=== PATIENT | female | born 1955 | race Caucasian/White ===

== ENCOUNTER 2016-09-21 21:23 | Observation (INO) | payer OTHER ==
[~2016-09-21] VITALS: Ht 162.6 cm; Wt 78.0 kg
[~2016-09-21 21:23] MED LIST: ALBU6.7H INH
[2016-09-21 21:27] VITALS: BP 200/88; PULSE 133; RESP 22; TEMP 99; O2SAT 92
[2016-09-21 21:41] VITALS: BP 146/77; PULSE 127; RESP 24; O2SAT 99
[2016-09-21] MEDS ORDERED: SERT-129 PO (21:46)
[2016-09-21] MEDS ORDERED: ALBU6.7H INH (21:46)
[2016-09-21] MEDS ORDERED: SODIUM CHLORIDE 0.9% FLUSH 5 ML FLUSH IVF PRN (22:00)
[2016-09-21] MEDS: RESP: ALBUTEROL 2.5 MG/IPRATROPIUM 0.5 MG NEB (SCH) INH ×2 (22:05→22:06)
--- NOTE | 2016-09-21 22:43 | RADRPT ---
EXAM DATE/TIME: 09/21/2016 22:03 [place] COMPARISON: CHEST SINGLE AP, September 02, 2012, 20:30. INDICATIONS : Shortness of breath. MEDICAL HISTORY : Asthma. SURGICAL HISTORY : None. ENCOUNTER: Initial ACUITY: 1 day PAIN SCORE: 0/10 LOCATION: chest FINDINGS: Minimal airspace disease is identified in the left base. Right lung is clear. Heart and mediastinal structures are stable. Osseous structures are intact. CONCLUSION: Mild left basilar airspace disease. Mayito Goodwin MD on September 21, 2016 at 22:40 Board Certified Radiologist. This report was verified electronically.
[2016-09-21 23:02] LABS: APTT (PATIENT) 24.7 SEC (24.3-30.1); INTERNATIONAL NORMALIZED RATIO 0.9 RATIO; PROTHROMBIN TIME - PATIENT 9.4 SEC (9.8-11.6)
[2016-09-21 23:12] LABS: ANION GAP 9 MEQ/L (5-15); AST (GOT) 27 U/L (15-37); BICARBONATE 24.6 MEQ/L (21.0-32.0); BLOOD UREA NITROGEN 14 MG/DL (7-18); CHLORIDE 105 MEQ/L (98-107); GLOMERULAR FILTRATION RATE 53 ML/MIN (>89); MAGNESIUM 2.2 MG/DL (1.5-2.5); POTASSIUM 4.3 MEQ/L (3.5-5.1); SODIUM (NA) 139 MEQ/L (136-145)
[2016-09-21 23:23] LABS: ALKALINE PHOSPHATASE 107 U/L (45-117); ALT (GPT) 48 U/L (10-53); CREATINE KINASE 95 U/L (26-192); TOTAL BILIRUBIN ADULT 0.3 MG/DL (0.2-1.0)
[2016-09-21 23:43] LABS: AUTOMATED NEUTROPHIL # 1.6 TH/MM3 (1.8-7.7); BASOPHIL % 0.4 % (0.0-2.0); EOSINOPHIL % 1.1 % (0.0-4.0); HEMATOCRIT 41.7 % (35.0-46.0); HEMO FLAGS DIFF FINAL; LYMPH % 43.5 % (9.0-44.0); LYMPHOCYTE # 1.8 TH/MM3 (1.0-4.8); MEAN CELL VOLUME 86.6 FL (80.0-100.0); MEAN CORPUSCULAR HGB CONC 33.5 % (32.0-36.0); MONO % 17.2 % (0.0-8.0); NEUT % 37.8 % (16.0-70.0); PLATELET COUNT 247 TH/MM3 (150-450); RED BLOOD COUNT 4.82 MIL/MM3 (4.00-5.30); RED CELL DISTRIBUTION WIDTH 13.6 % (11.6-17.2); WHITE BLOOD COUNT 4.1 TH/MM3 (4.0-11.0)
[2016-09-21 23:57] VITALS: BP 121/73; PULSE 121; RESP 24; TEMP 98.7; O2SAT 94
[2016-09-22] VITALS (9 sets, daily range): BP systolic 100–175; BP diastolic 53–86; PULSE 78–99; RESP 14–24; TEMP 96.8–97.9; O2SAT 93–98
[2016-09-22 00:50] LABS: BACTERIA, URINE RARE /hpf; BLOOD, URINE NEG (NEG); CALCIUM OXALATE CRYSTALS,URINE MOD /hpf; COMMENT (UR) CULT NOT INDICATED; CULTURE IF INDICATED CULT NOT INDICATED; GLUCOSE,URINE NEG (NEG); KETONE, URINE NEG (NEG); MUCUS URINE FEW /lpf (OCC); NITRITE,URINE NEG (NEG); PH, URINE 5.5 (5.0-8.5); RENAL EPITHELIAL CELLS <1 /hpf; SQUAMOUS EPITHELIAL CELL URINE 16 /hpf (0-5); TRANSITIONAL EPI CELLS, URINE 1 /hpf; URINE COLOR YELLOW (YELLW/STRAW)
--- NOTE | 2016-09-22 01:13 | PD ---
HPI Chief Complaint: Respiratory Symptoms Time Seen by Provider: 21:54 Travel History International Travel<30 days: No Contact w/Intl Traveler<30days: No Traveled to known affect area: No History of Present Illness HPI 61-year-old female presents to the emergency department for complaint of progressive shortness of breath. Patient has asthma with recent exacerbation. Patient presents with diaphoresis. Denies chest pain referred neck jaw back shoulder arm or abdominal pain. Patient denies history of cardiac disease. Patient states that she's had nonproductive cough but has not improved using her nebulizer at home. Patient was just recently seen by her primary care provider per yesterday was given prescription for azithromycin. Patient states symptoms are worsening and not improving. Patient states that she is working very hard to breathe. No abdominal pain. No lower extremity pain or swelling. PFSH Past Medical History Narrative Medical Asthma bipolar anxiety depression skin cancer GERD hysterectomy cholecystectomy appendectomy positive tobacco use nursing notes reviewed Arthritis: No Asthma: Yes Autoimmune Disease: No Blood Disorders: No Bipolar Disorder: Yes Anxiety: Yes Depression: Yes Heart Rhythm Problems: No Cancer: Yes (skin) Cardiac Catheterization: No Cardiovascular Problems: No High Cholesterol: No Chemotherapy: No Chest Pain: No Congestive Heart Failure: No COPD: No Cerebrovascular Accident: No Diabetes: No Diminished Hearing: No Endocrine: No GERD: Yes Glaucoma: No Genitourinary: No Headaches: No Hepatitis: No Hiatal Hernia: No Hypertension: No Kidney Stones: No Musculoskeletal: Yes Neurologic: No Psychiatric: No Respiratory: Yes (ASTHMA) Immunizations Current: Yes Myocardial Infarction: No Radiation Therapy: No Renal Failure: No Seizures: No Sickle Cell Disease: No Sleep Apnea: No Thyroid Disease: No Ulcer: No Tetanus Vaccination: Unknown Influenza Vaccination: No Menopausal: Yes Past Surgical History Abdominal Surgery: Yes AICD: No Cardiac Surgery: No Cholecystectomy: Yes (1984) Coronary Artery Bypass Graft: No Ear Surgery: No Endocrine Surgery: No Eye Surgery: No Genitourinary Surgery: No Gynecologic Surgery: Yes (HYSTERCTOMY) Hysterectomy: Yes Oral Surgery: No Pacemaker: No Thoracic Surgery: No Other Surgery: Yes (GB REMOVED,APPY,HYSTERECTOMY) Family History Family Myocardial Infarction: Yes (UNCLES) Social History Alcohol Use: No Tobacco Use: Yes Substance Use: No Allergies-Medications (Allergen,Severity, Reaction): Coded Allergies: No Known Allergies (Unverified , 01/28/16) Reported Meds & Prescriptions Reported Meds & Active Scripts Active Reported Proventil Hfa 6.7 GM Inh (Albuterol Sulfate) 90 Mcg/Act Aer 2 Puff INH Q6H PRN Sertraline (Sertraline HCl) 100 Mg Tab 100 Mg PO DAILY Proventil Hfa (Albuterol Sulfate) 6.7 Gm Aero 2 Puff INH Q4HPRN * SHAKE WELL BEFORE USE * Review of Systems Except as stated in HPI: all other systems reviewed are Neg General / Constitutional: No: Fever HENT: No: Congestion Cardiovascular: No: Chest Pain or Discomfort Respiratory: Positive: Cough, Shortness of Breath, Wheezing Gastrointestinal: No: Abdominal Pain Genitourinary: No: Flank Pain Musculoskeletal: No: Myalgias, Arthralgias Skin: No Rash Neurologic: No: Weakness Psychiatric: Positive: Anxiety Hematologic/Lymphatic: No: Lymph Node Enlargement Physical Exam Narrative GENERAL: Well-developed well-nourished female with work of breathing and diaphoresis SKIN: Warm and dry. HEAD: Normocephalic. EYES: No scleral icterus. No injection or drainage. NECK: Supple, trachea midline. No JVD or lymphadenopathy. CARDIOVASCULAR: Regular rate and rhythm without murmurs, gallops, or rubs. RESPIRATORY: Breath sounds equal bilaterally diminished with wheezing and accessory muscle use. GASTROINTESTINAL: Abdomen soft, non-tender, nondistended. MUSCULOSKELETAL: No cyanosis, or edema. BACK: Nontender without obvious deformity. No CVA tenderness. Data Data Last Documented VS Vital Signs Date Time Temp Pulse Resp B/P Pulse Ox O2 Delivery O2 Flow Rate FiO2 09/21/16 23:57 98.7 121 24 121/73 94 Nasal Cannula 2 Orders Complete Blood Count With Diff (09/21/16 21:54) Comprehensive Metabolic Panel (09/21/16 21:54) B-Type Natriuretic Peptide (09/21/16 21:54) Act Partial Throm Time (Ptt) (09/21/16 21:54) Prothrombin Time / Inr (Pt) (09/21/16 21:54) Magnesium (Mg) (09/21/16 21:54) Ckmb (Isoenzyme) Profile (09/21/16 21:54) Troponin I (09/21/16 21:54) Urinalysis - C+S If Indicated (09/21/16 21:54) Influenzae A/B Antigen (09/21/16 21:54) Blood Culture (09/21/16 21:54) Iv Access Insert/Monitor (09/21/16 21:54) Electrocardiogram (09/21/16 21:54) Ecg Monitoring (09/21/16 21:54) Oximetry (09/21/16 21:54) Oxygen Administration (09/21/16 21:54) Chest, Single Ap (09/21/16 21:54) Sodium Chloride 0.9% Flush (Ns Flush) (09/21/16 22:00) Albuterol-Ipratropium Neb (Duoneb Neb) (09/21/16 22:00) Sodium Chlorid 0.9% 500 Ml Inj (Ns 500 M (09/22/16 01:15) Azithromycin Inj (Zithromax Inj) (09/22/16 01:15) Ceftriaxone Inj (Rocephin Inj) (09/22/16 01:15) Admit Order (Ed Use Only) (09/22/16 ) ^ Saline Lock (09/22/16 01:33) Resp Oxygen Ez C Titrat 1-4 L (09/22/16 ) ^ Notify Dr: Other (09/22/16 01:33) Sodium Chloride 0.9% Flush (Ns Flush) (09/22/16 09:00) Sodium Chloride 0.9% Flush (Ns Flush) (09/22/16 01:45) Labs Laboratory Tests Test 09/21/16 09/22/16 22:00 00:00 White Blood Count 4.1 TH/MM3 Red Blood Count 4.82 MIL/MM3 Hemoglobin 14.0 GM/DL Hematocrit 41.7 % Mean Corpuscular Volume 86.6 FL Mean Corpuscular Hemoglobin 29.0 PG Mean Corpuscular Hemoglobin 33.5 % Concent Red Cell Distribution Width 13.6 % Platelet Count 247 TH/MM3 Mean Platelet Volume 9.3 FL Neutrophils (%) (Auto) 37.8 % Lymphocytes (%) (Auto) 43.5 % Monocytes (%) (Auto) 17.2 % Eosinophils (%) (Auto) 1.1 % Basophils (%) (Auto) 0.4 % Neutrophils # (Auto) 1.6 TH/MM3 Lymphocytes # (Auto) 1.8 TH/MM3 Monocytes # (Auto) 0.7 TH/MM3 Eosinophils # (Auto) 0.0 TH/MM3 Basophils # (Auto) 0.0 TH/MM3 CBC Comment DIFF FINAL Differential Comment Prothrombin Time 9.4 SEC Prothromb Time International 0.9 RATIO Ratio Activated Partial 24.7 SEC Thromboplast Time Sodium Level 139 MEQ/L Potassium Level 4.3 MEQ/L Chloride Level 105 MEQ/L Carbon Dioxide Level 24.6 MEQ/L Anion Gap 9 MEQ/L Blood Urea Nitrogen 14 MG/DL Creatinine 1.06 MG/DL Estimat Glomerular Filtration 53 ML/MIN Rate Random Glucose 155 MG/DL Calcium Level 8.6 MG/DL Magnesium Level 2.2 MG/DL Total Bilirubin 0.3 MG/DL Aspartate Amino Transf 27 U/L (AST/SGOT) Alanine Aminotransferase 48 U/L (ALT/SGPT) Alkaline Phosphatase 107 U/L Total Creatine Kinase 95 U/L Troponin I LESS THAN 0.02 NG/ML B-Type Natriuretic Peptide 3 PG/ML Total Protein 7.5 GM/DL Albumin 3.8 GM/DL Urine Color YELLOW Urine Turbidity HAZY Urine pH 5.5 Urine Specific [place] 1.030 Urine Protein TRACE mg/dL Urine Glucose (UA) NEG mg/dL Urine Ketones NEG mg/dL Urine Occult Blood NEG Urine Nitrite NEG Urine Bilirubin NEG Urine Urobilinogen LESS THAN 2.0 MG/DL Urine Leukocyte Esterase LARGE Urine RBC 6 /hpf Urine WBC 6 /hpf Urine Squamous Epithelial 16 /hpf Cells Urine Transitional Epithelial 1 /hpf Cells Urine Renal Epithelial Cells <1 /hpf Urine Calcium Oxalate Crystals MOD /hpf Urine Bacteria RARE /hpf Urine Mucus FEW /lpf Microscopic Urinalysis Comment CULT NOT INDICATED MDM Medical Decision Making Medical Screen Exam Complete: Yes Emergency Medical Condition: Yes Medical Record Reviewed: Yes Interpretation(s) ekg: Sinus tachycardia no acute ST elevation or injury pattern change noted Last Impressions Chest X-Ray 09/21/16 [id number] Signed Impressions: Service Date/Time: Wednesday, September 21, 2016 22:03 - CONCLUSION: Mild left basilar airspace disease. Mayito Goodwin MD CBC & BMP Diagram 09/21/16 22:00 Vital Signs Date Time Temp Pulse Resp B/P Pulse Ox O2 Delivery O2 Flow Rate FiO2 09/21/16 23:57 98.7 121 24 121/73 94 Nasal Cannula 2 09/21/16 21:48 99 Nasal Cannula 2 09/21/16 21:42 98 Nasal Cannula 2 09/21/16 21:41 127 24 146/77 99 Room Air 09/21/16 21:27 99.0 133 22 200/88 92 Room Air CK 90, not elevated troponin I less than 0.02, not elevated BNP 3, not elevated Differential Diagnosis Dyspnea, exacerbation COPD, asthma, bronchitis, pneumonia, CHF, PE, ACS Narrative Course Patient placed on civil cad tech IV access obtained specimens collected and sent for resulting patient administered IV fluid bolus and DuoNeb updrafts along with Solu-Medrol Advise resulted and found to be essentially within normal range patient resting more comfortably Chest x-ray does not show any pneumothorax large pleural effusion or vascular congestion Patient is clinically improved after updraft treatment and steroids; patient will be admitted for ongoing management of asthma Sepsis Criteria SIRS Criteria (2 or more): Heart rate over 90, RR > 20 or PaCO2 < 32 Sepsis Criteria (SIRS+source): Infect source susp/known (bronchitis) Diagnosis Primary Impression: Exacerbation of asthma Additional Impression: Bronchitis Admitting Information Admitting Physician Requests: Admit Norma Giang MD Sep 22, 2016 01:13
[2016-09-22] MEDS ORDERED: SODIUM CHLORID 0.9% 500 ML INJ 500 ML IV ONE (01:15)
[2016-09-22] MEDS ORDERED: cefTRIAXone INJ 1,000 MG in SODIUM CHLORIDE 0.9% INJ 100 ML IV ONE (01:15)
[2016-09-22] MEDS ORDERED: AZITHROMYCIN INJ 500 MG in SODIUM CHLOR 0.9% 250 ML INJ 250 ML IV ONE (01:15)
[2016-09-22] MEDS ORDERED: SODIUM CHLORIDE 0.9% FLUSH 5 ML FLUSH IVF PRN (01:45)
[2016-09-22] MEDS ORDERED: NALOXONE HCL 0.4 MG/ML AMP IV PRN (02:00)
[2016-09-22] MEDS ORDERED: RESP: ALBUTEROL 2.5 MG/IPRATROPIUM 0.5 MG NEB (PRN) NEB (02:00)
[2016-09-22] MEDS ORDERED: SODIUM CHLORIDE 0.9% FLUSH 5 ML FLUSH FLUSH PRN (02:00)
[2016-09-22] MEDS: RESP: ALBUTEROL 2.5 MG/IPRATROPIUM 0.5 MG NEB (SCH) NEB ×4 (02:46→20:17)
[2016-09-22] MEDS ORDERED: SODIUM CHLORIDE 0.9% FLUSH 5 ML FLUSH IVF SCH (09:00)
[2016-09-22] MEDS: ENOXAPARIN SODIUM 40 MG/0.4 ML SYRINGE SQ SCH (09:10)
[2016-09-22] MEDS: SODIUM CHLORIDE 0.9% FLUSH 5 ML FLUSH FLUSH SCH ×2 (09:10→23:33)
--- NOTE | 2016-09-22 10:02 | HHI.HP ---
[facility] Service [facility] Primary Care Physician Tyler Leon DO Admission Diagnosis Exacerbation Asthma; acute bronchitis Diagnoses: Chief Complaint: shortness of breath Travel History International Travel<30 Days: No Contact w/Intl Traveler <30 Da: No Traveled to Known Affected Are: No History of Present Illness 61-year-old female with history of hypertension, asthma, bipolar, anxiety, depression, GERD, presents with a 2 day history of shortness of breath. The patient reports four days ago she was around her son and grandson who are sick with the "flu", has symptoms of congestion, sore throat, fevers. Patient reports the next day she started having nasal congestion, scratchy throat, and fevers as high as 102 at home. She started taking Mucinex and ibuprofen which did help relieve her fevers and congestion, however yesterday she started to develop worsening shortness of breath. She has been using her albuterol inhaler twice a day with minimal relief. She felt like she just could not get any air in, and had worsening dyspnea on exertion. Denies noticing any wheezing. Denies lower extremity edema. She initially had a dry hacking cough but after taking the Mucinex, she has been able to produce some phlegm, does not know what color. The patient does have a history of asthma since childhood, has never had to be hospitalized overnight or intubated, but has had multiple ER visits for asthma exacerbations in the past. Since her arrival to the ER, CXR showed mild left basilar airspace disease. She was given IV Rocephin/ azithromycin and nebulizer treatments with mild improvement. Review of Systems Constitutional: COMPLAINS OF: Fever, Chills, DENIES: Diaphoretic episodes, Dizziness, Change in appetite, Night Sweats Endocrine: DENIES: Polydipsia, Polyuria, Polyphagia Eyes: DENIES: Blurred vision, Double Vision Ears, nose, mouth, throat: COMPLAINS OF: Throat pain, Sinus Pain, DENIES: Ear Pain, Running Nose, Toothache, Odynophagia Respiratory: COMPLAINS OF: Cough, Sputum production, Shortness of breath, DENIES: Wheezing Cardiovascular: COMPLAINS OF: Dyspnea on Exertion, DENIES: Chest pain, Palpitations, Lower Extremity Edema, Orthopnea Gastrointestinal: DENIES: Abdominal pain, Constipation, Diarrhea, Nausea, Vomiting Genitourinary: DENIES: Urinary frequency, Urgency, Dysuria Musculoskeletal: DENIES: Joint pain, Back pain, Neck pain Integumentary: DENIES: Abnormal pigmentation, Pruritus, Rash Hematologic/lymphatic: DENIES: Bruising, Lymphadenopathy Immunologic/allergic: DENIES: Eczema, Urticaria Neurologic: DENIES: Abnormal gait, Headache, Localized weakness Past Family Social History Past Medical History Asthma Bipolar Anxiety Depression Skin cancer GERD Past Surgical History Hysterectomy Cholecystectomy Appendectomy Reported Medications Proventil Hfa 6.7 GM Inh (Albuterol Sulfate) 90 Mcg/Act Aer 2 Puff INH Q6H PRN Sertraline (Sertraline HCl) 100 Mg Tab 100 Mg PO DAILY Trileptal 300mg po bid Lisinopril unknown dose Oxybutynin Omeprazole Clonazepam 1mg q8h prn Allergies: Coded Allergies: No Known Allergies (Unverified , 01/28/16) Active Ordered Medications Current Medications Medications (Trade) Dose Ordered Sig/Ann Marie Route Start Time Stop Time Status Last Admin (NS Flush) 2 ml UNSCH PRN FLUSH 09/22/16 02:00 (NS Flush) 2 ml BID FLUSH 09/22/16 09:00 09/22/16 09:10 (Lovenox Inj) 40 mg Q24H SQ 09/22/16 09:00 09/22/16 09:10 (Narcan Inj) 0.4 mg UNSCH PRN IV 09/22/16 02:00 Family History Father with heart disease, valve replacement Mother with diabetes, hypertension, stroke Social History Smoked tobacco 2PPD from age 12 to 29 (quit in 1983) No alcohol use No illicit drug use Lives with her son and ex- Ambulates independently Physical Exam Vital Signs Vital Signs Date Time Temp Pulse Resp B/P Pulse Ox O2 Delivery O2 Flow Rate FiO2 09/22/16 08:56 97.6 87 14 111/65 98 09/22/16 08:42 78 18 175/78 97 2 09/22/16 07:14 86 16 116/86 95 Nasal Cannula 2 09/22/16 07:14 95 2 09/22/16 07:14 96 Nasal Cannula 2 09/22/16 07:14 86 16 116/68 95 Nasal Cannula 2 09/22/16 04:26 99 24 116/53 97 Nasal Cannula 2 09/22/16 03:25 24 09/21/16 23:57 98.7 121 24 121/73 94 Nasal Cannula 2 09/21/16 21:48 99 Nasal Cannula 2 09/21/16 21:42 98 Nasal Cannula 2 09/21/16 21:41 127 24 146/77 99 Room Air 09/21/16 21:27 99.0 133 22 200/88 92 Room Air Physical Exam GENERAL: Well-nourished, well-developed middle aged female patient in [facility]. Sleeping upon my arrival. SKIN: Warm and dry. No rash. HEAD: Normocephalic. Atraumatic. EYES: Pupils equal and round. No scleral icterus. No injection or drainage. ENT: No nasal bleeding or discharge. Mucous membranes pink and moist. NECK: Supple. Trachea midline. CARDIOVASCULAR: Regular rate and rhythm. S1, S2 noted. No murmur appreciated. RESPIRATORY: No accessory muscle use. Breath sounds diminished at bilateral bases, otherwise clear to auscultation. Breath sounds equal bilaterally. GASTROINTESTINAL: Abdomen soft, non-tender, nondistended. Normoactive bowel sounds x4. MUSCULOSKELETAL: No obvious deformities. Extremities without clubbing, cyanosis , or edema. NEUROLOGICAL: Awake and alert. No obvious cranial nerve deficits. Motor grossly within normal limits. 5/5 muscle strength in bilateral upper and lower extremities. Normal speech. PSYCHIATRIC: Appropriate mood and affect; insight and judgment normal. Laboratory Laboratory Tests Test 09/21/16 09/22/16 22:00 00:00 White Blood Count 4.1 Red Blood Count 4.82 Hemoglobin 14.0 Hematocrit 41.7 Mean Corpuscular Volume 86.6 Mean Corpuscular Hemoglobin 29.0 Mean Corpuscular Hemoglobin 33.5 Concent Red Cell Distribution Width 13.6 Platelet Count 247 Mean Platelet Volume 9.3 Neutrophils (%) (Auto) 37.8 Lymphocytes (%) (Auto) 43.5 Monocytes (%) (Auto) 17.2 Eosinophils (%) (Auto) 1.1 Basophils (%) (Auto) 0.4 Neutrophils # (Auto) 1.6 Lymphocytes # (Auto) 1.8 Monocytes # (Auto) 0.7 Eosinophils # (Auto) 0.0 Basophils # (Auto) 0.0 CBC Comment DIFF FINAL Differential Comment Prothrombin Time 9.4 Prothromb Time International 0.9 Ratio Activated Partial 24.7 Thromboplast Time Sodium Level 139 Potassium Level 4.3 Chloride Level 105 Carbon Dioxide Level 24.6 Anion Gap 9 Blood Urea Nitrogen 14 Creatinine 1.06 Estimat Glomerular Filtration 53 Rate Random Glucose 155 Calcium Level 8.6 Magnesium Level 2.2 Total Bilirubin 0.3 Aspartate Amino Transf 27 (AST/SGOT) Alanine Aminotransferase 48 (ALT/SGPT) Alkaline Phosphatase 107 Total Creatine Kinase 95 Troponin I LESS THAN 0.02 B-Type Natriuretic Peptide 3 Total Protein 7.5 Albumin 3.8 Urine Color YELLOW Urine Turbidity HAZY Urine pH 5.5 Urine Specific [place] 1.030 Urine Protein TRACE Urine Glucose (UA) NEG Urine Ketones NEG Urine Occult Blood NEG Urine Nitrite NEG Urine Bilirubin NEG Urine Urobilinogen LESS THAN 2.0 Urine Leukocyte Esterase LARGE Urine RBC 6 Urine WBC 6 Urine Squamous Epithelial 16 Cells Urine Transitional Epithelial 1 Cells Urine Renal Epithelial Cells <1 Urine Calcium Oxalate Crystals MOD Urine Bacteria RARE Urine Mucus FEW Microscopic Urinalysis Comment CULT NOT INDICATED Date/Time Procedure Status Source Growth 09/21/16 22:03 Influenza Types A,B Antigen (IRMA) - Final Complete Nasal Washing NEGATIVE FOR FLU A AND B ANTIGEN.... 09/21/16 22:00 Aerobic Blood Culture Received Blood Peripheral Pending 09/21/16 22:00 Anaerobic Blood Culture Received Blood Peripheral Pending Result Diagram: 09/21/16 2200 09/21/16 220 Imaging Last Impressions Chest X-Ray 09/21/162153 Signed Impressions: Service Date/Time: Wednesday, September 21, 2016 22:03 - CONCLUSION: Mild left basilar airspace disease. Mayito Goodwin MD Assessment and Plan Problem List: (1) Exacerbation of asthma ICD Code: J45.901 Status: Acute (2) Pneumonia ICD Code: J18.9 Status: Acute Assessment and Plan 61-year-old female with history of hypertension, asthma, bipolar, anxiety, depression, GERD, presents with a 2 day history of shortness of breath. Asthma Exacerbation: O2 sat 92% upon arrival, not on home O2. Continue duonebs q6h ann marie and q2h prn. No wheezing, will hold off on steroids at this time. Abx for pneumonia as below. O2 as needed. Sepsis with Suspected Community Acquired Pneumonia: Febrile at home, Tmax 102, and tachycardic upon arrival with HR 122. Influenza negative. CXR images reviewed by me, showed mild left basilar airspace disease. S/p IV Rocephin/ Azithro in the ED, will continue. Mucinex bid. Collect sputum culture if possible. JAM: Cr 1.06, previously 0.83 in 2012. Given IVF. Repeat BMP. Hypertension: chronic, continue patient's lisinopril once dose verified by nursing. Bipolar/Anxiety/Depression: chronic, continue patient's sertraline, Trileptal, and clonazepam prn. RN to verify home meds. GERD: chronic, continue PPI. DVT Prophylaxis: Lovenox. Discussed with Dr. Espana. Discussed Condition With Patient, Isamar Simpson PA-C Sep 22, 2016 10:02
[2016-09-22] MEDS ORDERED: clonazePAM 1 MG TAB PO PRN (10:30)
[2016-09-22] MEDS ORDERED: ENALAPRILAT 1.25 MG/ML VIAL IV PUSH PRN (10:45)
[2016-09-22] MEDS: PANTOPRAZOLE SOD 20 MG DELAYED RELEASE TAB PO SCH (12:30)
[2016-09-22] MEDS: SERTRALINE HCL 100 MG TAB PO SCH (12:30)
[2016-09-22] MEDS: guaiFENesin E.R. 600 MG TAB PO SCH ×2 (12:30→23:32)
[2016-09-22] MEDS: OXcarbazepine 300 MG TAB PO SCH ×2 (12:30→23:32)
[2016-09-22] MEDS ORDERED: LISI2.5T3 PO (12:37)
[2016-09-22] MEDS ORDERED: CLON2TAB PO (12:37)
[2016-09-22] MEDS ORDERED: OXCA300T PO (12:37)
[2016-09-22] MEDS ORDERED: OMEP40CA2 PO (12:37)
[2016-09-22] MEDS ORDERED: OXYB5TAB PO (12:37)
[2016-09-22] MEDS ORDERED: CLON1TAB PO (12:37)
[2016-09-22] MEDS ORDERED: ACETAMINOPHEN 325 MG TAB PO PRN (17:30)
--- NOTE | 2016-09-22 23:49 | EKG ---
Date Performed: 09/21/2016 Time Performed: 21:46:53 PTAGE: 61 years EKG: SINUS TACHYCARDIA PATTERN CONSISTENT WITH PULMONARY DISEASE LEFT ANTERIOR FASCICULAR BLOCK MODERATE VOLTAGE CRITERIA FOR LVH, CONSIDER NORMAL VARIANT ABNORMAL ECG PREVIOUS TRACING : 01/28/2016 21.11 Compared to prior tracing no significant change DOCTOR: Chester Mattson Interpretating Date/Time 09/22/2016 23:47:12
[2016-09-23] VITALS (7 sets, daily range): BP systolic 116–139; BP diastolic 53–76; PULSE 79–104; RESP 16–18; TEMP 97.4–98.7; O2SAT 89–98
[2016-09-23] MEDS ORDERED: cefTRIAXone INJ 1,000 MG in SODIUM CHLORIDE 0.9% INJ 100 ML IV SCH (03:00)
[2016-09-23] MEDS: RESP: ALBUTEROL 2.5 MG/IPRATROPIUM 0.5 MG NEB (SCH) NEB ×3 (03:22→15:29)
[2016-09-23] MEDS ORDERED: AZITHROMYCIN 250 MG TAB PO SCH (04:00)
[2016-09-23] MEDS: PANTOPRAZOLE SOD 20 MG DELAYED RELEASE TAB PO SCH (08:06)
[2016-09-23] MEDS: guaiFENesin E.R. 600 MG TAB PO SCH (08:06)
[2016-09-23] MEDS: SODIUM CHLORIDE 0.9% FLUSH 5 ML FLUSH FLUSH SCH (08:06)
[2016-09-23] MEDS: OXcarbazepine 300 MG TAB PO SCH (08:07)
[2016-09-23] MEDS: SERTRALINE HCL 100 MG TAB PO SCH (08:07)
[2016-09-23] MEDS: ENOXAPARIN SODIUM 40 MG/0.4 ML SYRINGE SQ SCH (08:07)
--- NOTE | 2016-09-23 08:41 | HHI.PR ---
Subjective Remarks Follow-up for asthma exacerbation and pneumonia. Patient reports overall feeling slightly better, however still feels "sick". Feels slightly short of breath today, denies wheezing. Still with intractable nonproductive cough. Denies fevers or chills overnight. She states her oxygen saturations have been dropping when she ambulates, down to 88-89. She does not wear oxygen at home. Objective Vitals Vital Signs Date Time Temp Pulse Resp B/P Pulse Ox O2 Delivery O2 Flow Rate FiO2 09/23/16 08:07 97.4 90 16 139/70 91 09/23/16 07:36 95 21 09/23/16 04:58 98.7 85 18 131/76 98 09/23/16 00:48 97.8 81 18 121/75 89 09/22/16 19:34 96.8 80 20 118/59 93 09/22/16 15:24 97.9 78 16 100/69 95 09/22/16 11:23 97.6 79 14 113/69 94 09/22/16 11:22 88 09/22/16 08:56 97.6 87 14 111/65 98 09/22/16 08:42 78 18 175/78 97 2 I/O 09/22/16 09/22/16 09/22/16 09/23/16 09/23/16 09/23/16 07:00 15:00 23:00 07:00 15:00 23:00 Intake Total 0 ml Balance 0 ml Intake Oral 0 ml # Voids 1 2 # Bowel Movements 1 Result Diagram: 09/21/16219909/21/162199 Imaging Last Impressions Chest X-Ray 09/21/162153 Signed Impressions: Service Date/Time: Wednesday, September 21, 2016 22:03 - CONCLUSION: Mild left basilar airspace disease. Mayito Goodwin MD Objective Remarks GENERAL: Well-nourished, well-developed middle aged female patient in [facility]. Sleeping upon my arrival. SKIN: Warm and dry. No rash. HEENT: Normocephalic. Atraumatic.Pupils equal and round. No scleral icterus. No injection or drainage. Mucous membranes pink and moist. NECK: Supple. Trachea midline. CARDIOVASCULAR: Regular rate and rhythm. S1, S2 noted. No murmur appreciated. RESPIRATORY: No accessory muscle use. Mild scattered expiratory rhonchi bilaterally. Breath sounds equal bilaterally. GASTROINTESTINAL: Abdomen soft, non-tender, nondistended. Normoactive bowel sounds x4. MUSCULOSKELETAL: No obvious deformities. Extremities without clubbing, cyanosis , or edema. NEUROLOGICAL: Awake and alert. No obvious cranial nerve deficits. Motor grossly within normal limits. Normal speech. PSYCHIATRIC: Appropriate mood and affect; insight and judgment normal. Medications and IVs Current Medications Medications (Trade) Dose Ordered Sig/Ann Marie Route Start Time Stop Time Status Last Admin (NS Flush) 2 ml UNSCH PRN FLUSH 09/22/16 02:00 (NS Flush) 2 ml BID FLUSH 09/22/16 09:00 09/23/16 08:06 (Lovenox Inj) 40 mg Q24H SQ 09/22/16 09:00 09/23/16 08:07 (Narcan Inj) 0.4 mg UNSCH PRN IV 09/22/16 02:00 (KlonoPIN) 1 mg Q8H PRN PO 09/22/16 10:30 Guaifenesin 600 mg 600 mg BID PO 09/22/16 12:00 09/23/16 08:06 (Rocephin Inj/NS Inj) 100 ml @ 200 mls/hr Q24H IV 09/23/16 03:00 09/23/16 02:33 (Zithromax) 500 mg Q24H PO 09/23/16 04:00 09/23/16 03:15 (Zoloft) 100 mg DAILY PO 09/22/16 12:00 09/23/16 08:07 (Trileptal) 300 mg BID PO 09/22/16 12:00 09/23/16 08:07 (Protonix) 20 mg DAILY PO 09/22/16 12:00 09/23/16 08:06 (Vasotec Inj) 1.25 mg Q6H PRN IV PUSH 09/22/16 10:45 (Tylenol) 650 mg Q4H PRN PO 09/22/16 17:30 09/22/16 17:55 (Prinivil) 2.5 mg DAILY PO 09/23/16 09:00 09/23/16 08:06 (Detrol La) 2 mg DAILY PO 09/23/16 09:00 09/23/16 08:24 Urinary Catheter: No Vascular Central Line Catheter: No A/P Problem List: (1) Exacerbation of asthma ICD Code: J45.901 Status: Acute (2) Pneumonia ICD Code: J18.9 Status: Acute Assessment and Plan 61-year-old female with history of hypertension, asthma, bipolar, anxiety, depression, GERD, presents with a 2 day history of shortness of breath. Asthma Exacerbation: O2 sat 92% upon arrival, not on home O2. Continue duonebs q6h ann marie and q2h prn. Mild rhonchi today, will add prednisone 40mg daily. Abx for pneumonia as below. O2 as needed. Check home O2 walk test. Sepsis with Suspected Community Acquired Pneumonia: Febrile at home, Tmax 102, and tachycardic upon arrival with HR 122. Influenza negative. CXR images reviewed by me, showed mild left basilar airspace disease. S/p IV Rocephin/ Azithro in the ED, will continue. Mucinex bid. Collect sputum culture if possible. JAM: Cr 1.06, previously 0.83 in 2012. Given IVF. Repeat BMP. Hypertension: chronic, continue patient's lisinopril once dose verified by nursing. Bipolar/Anxiety/Depression: chronic, continue patient's sertraline, Trileptal, and clonazepam prn. GERD: chronic, continue PPI. DVT Prophylaxis: Lovenox. Discussed with Dr. Espana. Discharge Planning Possible discharge this afternoon if patient continues to feel better. 1610hrs: Patient re-evaluated, feels better, agrees to discharge. No further wheezing/rhonchi. Discharge patient to home Condition on discharge: Improved Heart Healthy Diet as tolerated Ad Myah activity Rx written: Ceftin 500mg po bid x7days, Azithro 500mg po qd x3days, Prednisone 40mg po qd x3days then 20mg po x3days, Symbicort bid, Ventolin HFA q4-6h prn. Follow-up with primary care physician within [address] PA-C Sep 23, 2016 8:41 am
[2016-09-23] MEDS ORDERED: LISINOPRIL 5 MG TAB PO SCH (09:00)
[2016-09-23] MEDS ORDERED: predniSONE 20 MG TAB PO SCH (09:00)
[2016-09-23] MEDS ORDERED: TOLTERODINE TARTRATE 2 MG CAP LA PO SCH (09:00)
[2016-09-23 10:40] LABS: BICARBONATE 26.8 MEQ/L (21.0-32.0)
[2016-09-23] MEDS ORDERED: MUCI600T PO (15:58)
[2016-09-23] MEDS ORDERED: PRED20 PO (15:58)
[2016-09-23] MEDS ORDERED: ZITH250T PO (15:58)
--- NOTE | 2016-09-23 16:00 | HHI.DCPOC ---
Discharge Care Plan Diagnosis: (1) Pneumonia (2) Exacerbation of asthma Your Health Problems Are: Cough Shortness of Breath Goals to Promote Your Health * To prevent worsening of your condition and complications * To maintain your health at the optimal level Directions to Meet Your Goals Take your medications as prescribed Follow your dietary instruction Follow activity as directed Keep your appointments as scheduled Take your immunizations and boosters as scheduled If your symptoms worsen call your PCP, if no PCP go to Urgent Care Center or Emergency Room Smoking is Dangerous to Your Health. Avoid second hand smoke Call the 24-hour hour crisis hotline for domestic abuse at [address] PA-C Sep 23, 2016 16:00
[2016-09-23] MEDS ORDERED: CEFT500T3 PO (16:20)
[2016-09-23] MEDS ORDERED: SYMB160A INH (16:24)
[2016-09-23] MEDS ORDERED: VENTAER INH (16:24)
[2016-10-18] MEDS ORDERED: LISI2.5T3 PO (11:29)
[2016-10-18] MEDS ORDERED: PANT40TA3 PO (11:29)
[2016-10-18] MEDS ORDERED: FLUT50SP EACH NARE (12:16)
[2016-10-18] MEDS ORDERED: TRIA1OIN2 TOPICAL (12:16)
[2016-10-18] MEDS ORDERED: VIST25CA PO (12:16)
[2017-01-04] MEDS ORDERED: SYMB160A INH (14:57)
== END 2016-09-23 20:59 | disposition home or self-care (01) ==
LOC: NEPC 21:23 → NEDA 09-22 01:35 → INTOOBSV 09-22 01:35 → NEDA 09-22 03:22 → NEPHCDU 09-22 08:52
PROVIDERS: ADMIT Hospitalist; ATTEND Hospitalist
DX: J45.901 Unspecified asthma with (acute) exacerbation (principal); K21.9 Gastro-esophageal reflux disease without esophagitis; I10 Essential (primary) hypertension; R61 Generalized hyperhidrosis; F41.8 Other specified anxiety disorders; F31.9 Bipolar disorder, unspecified; Z82.49 Family history of ischemic heart disease and other diseases of the circulatory system; Z87.891 Personal history of nicotine dependence; Z85.828 Personal history of other malignant neoplasm of skin
CPT/HCPCS: 71010; 80048; 80053; 81001; 82550; 83735; 83880; 84484; 85025; 85610; 85730; 87040; 87641; 87804; 93005; 94620; 94640; 94664; 99285; G0378; J0456; J0696; J1650; J7040; J7050; J7512

== ENCOUNTER 2017-09-20 01:48 | Inpatient (IN) | payer SELFPAY ==
[~2017-09-20 01:48] MED LIST changes: -ALBU6.7H INH; +CLON1TAB PO; +FLUT50SP EACH NARE; +LISI2.5T3 PO; +OXCA300T PO; +OXYB5TAB PO; +PANT40TA3 PO; +SERT-129 PO; +SYMB160A INH; +TRIA1OIN2 TOPICAL; +VENTAER INH; +VIST25CA PO
[2017-09-20 01:50] VITALS: BP 188/79; PULSE 112; RESP 16; TEMP 98.9; O2SAT 95
[2017-09-20 02:36] LABS: AUTOMATED NEUTROPHIL # 4.3 TH/MM3 (1.8-7.7); BASOPHIL % 0.5 % (0.0-2.0); EOSINOPHIL # 0.1 TH/MM3 (0-0.4); EOSINOPHIL % 1.5 % (0.0-4.0); HEMATOCRIT 39.5 % (35.0-46.0); HEMOGLOBIN 13.4 GM/DL (11.6-15.3); LYMPHOCYTE # 1.8 TH/MM3 (1.0-4.8); MEAN CELL VOLUME 85.4 FL (80.0-100.0); MEAN PLATELET VOLUME 8.3 FL (7.0-11.0); MONO % 10.9 % (0.0-8.0); MONOCYTE # 0.8 TH/MM3 (0-0.9); NEUT % 61.1 % (16.0-70.0); PLATELET COUNT 297 TH/MM3 (150-450); RED BLOOD COUNT 4.62 MIL/MM3 (4.00-5.30); RED CELL DISTRIBUTION WIDTH 13.5 % (11.6-17.2); WHITE BLOOD COUNT 7.1 TH/MM3 (4.0-11.0)
[2017-09-20 02:46] LABS: INTERNATIONAL NORMALIZED RATIO 0.9 RATIO; PROTHROMBIN TIME - PATIENT 9.6 SEC (9.8-11.6)
[2017-09-20 02:49] LABS: C-REACTIVE PROTEIN 14.8 MG/DL (0.00-0.30); CREATININE 0.97 MG/DL (0.50-1.00)
--- NOTE | 2017-09-20 02:52 | RADRPT ---
EXAM DATE/TIME: 09/20/2017 02:44 [place] COMPARISON: No previous studies available for comparison. INDICATIONS : Right knee pain with swelling post fall. MEDICAL HISTORY : Asthma SURGICAL HISTORY : None. ENCOUNTER: Initial ACUITY: 1 day PAIN SCORE: 6/10 LOCATION: Right knee FINDINGS: Four view examination of the right knee demonstrates no evidence of fracture or dislocation. Bony mi neralization is normal. The articular surfaces are intact. The suprapatellar soft tissues have a no rmal configuration. Prepatellar soft tissue swelling. CONCLUSION: 1. Prepatellar soft tissue swelling without acute fracture or dislocation. Frederick Avina MD on September 20, 2017 at 2:51 Board Certified Radiologist. This report was verified electronically.
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
[2017-09-20] MEDS ORDERED: KETOROLAC TROMETHAMINE 30 MG/ML (IVP) VIAL IV PUSH ONE (03:00)
[2017-09-20] MEDS ORDERED: LIDOCAINE HCL 1% 20 ML VIAL INFIL ONE (03:30)
[2017-09-20] MEDS ORDERED: ceFAZolin 2 GM PREMIX 50 ML IV ONE (04:00)
[2017-09-20] MEDS ORDERED: NALOXONE HCL 0.4 MG/ML AMP IV PUSH PRN ×2 (04:00→12:45)
[2017-09-20] MEDS ORDERED: CLINDAMYCIN 900 MG/NS PREMIX 50 ML IV ONE (04:00)
[2017-09-20] MEDS ORDERED: SODIUM CHLOR 0.9% 1000 ML INJ 1,000 ML IV ONE (04:00)
[2017-09-20] MEDS ORDERED: SODIUM CHLORIDE 0.9% FLUSH 10 ML FLUSH IV FLUSH PRN (04:00)
[2017-09-20] MEDS ORDERED: ACETAMINOPHEN 325 MG TAB PO PRN (04:00)
[2017-09-20] MEDS ORDERED: ONDANSETRON HCL 4 MG/2 ML VIAL IVP PRN ×2 (04:00→12:45)
[2017-09-20 05:11] VITALS: BP 154/89; PULSE 86; RESP 16; O2SAT 97
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
[2017-09-20] MEDS ORDERED: methylPREDNISolone SOD SUCC 125 MG/2 ML VIAL IV PUSH ONE (05:30)
[2017-09-20 06:04] VITALS: BP 164/72; PULSE 111; RESP 16; TEMP 98.1; O2SAT 94
[2017-09-20 07:22] VITALS: BP 175/85; PULSE 104; RESP 18; TEMP 97.7; O2SAT 95
[2017-09-20] MEDS ORDERED: CHLORHEXIDINE GLUCONATE 2 % 1 PACK (2 CLOTHS) TOPICAL PRN (07:30)
[2017-09-20] MEDS ORDERED: SODIUM CHLORID 0.9% 500 ML IV PRN (07:30)
[2017-09-20] MEDS ORDERED: METOPROLOL TARTRATE 25 MG TAB PO PRN (07:30)
[2017-09-20] MEDS ORDERED: POVIDONE IODINE 5% (ANTISEPSIS KIT) 4 APPLICATIONS EACH NARE PRN (07:30)
[2017-09-20] MEDS ORDERED: LACTATED RINGER'S 1000 ML IV PRN (07:30)
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
[2017-09-20] MEDS: SODIUM CHLORIDE 0.9% FLUSH 10 ML FLUSH IV FLUSH SCH ×2 (09:00→20:18)
--- NOTE | 2017-09-20 09:57 | HHI.PR ---
Subjective Remarks Complaints of abdominal pain, burning sensation. Patient states that she has an ulcer in her stomach complaints of burning sensation, no cramping, nonradiating, rated 10 over 10. Patient also states that she started to have diarrhea. She is on antibiotic IV clindamycin as ordered in the ED. She is to be taken to the OR for orthopedic procedure possible aspiration and debridement of the right knee. Otherwise denies chest pain, palpitations, shortness of breath or dyspnea. Denies dysuria. Objective Vitals Vital Signs Date Time Temp Pulse Resp B/P (MAP) Pulse Ox O2 Delivery O2 Flow Rate FiO2 09/20/17 07:22 97.7 104 18 175/85 (115) 95 09/20/17 06:04 98.1 111 16 164/72 (102) 94 09/20/17 05:50 09/20/17 05:11 86 16 154/89 (110) 97 Room Air 09/20/17 01:50 98.9 112 16 188/79 (115) 95 I/O 09/19/17 09/19/17 09/19/17 09/20/17 09/20/17 09/20/17 07:00 15:00 23:00 07:00 15:00 23:00 Intake Total 1050 ml Balance 1050 ml Intake IV Total 1050 ml Result Diagram: 09/20/1722409/20/17224 Objective Remarks GENERAL: This is a well-nourished, well-developed patient, in no apparent distress. SKIN: Warm and dry. HEENT: Normocephalic. Pupils equal round and reactive. Nose without bleeding. Airway patent. NECK: Trachea midline. No JVD. Supple. CARDIOVASCULAR: Regular rate and rhythm without murmurs, gallops, or rubs. RESPIRATORY: Clear to auscultation. Breath sounds equal bilaterally. No wheezes , rales, or rhonchi. GASTROINTESTINAL: Abdomen soft, nondistended. Bowel Sounds normoactive x4. Tender to palpate mid epigastric region MUSCULOSKELETAL: Extremities without clubbing, cyanosis. Right knee edema, erythema noted. NEUROLOGICAL: Awake and alert. Oriented to time, place, person. No focal neuro deficit. Moves all extremities. Normal speech. A/P Problem List: (1) Cellulitis ICD Code: L03.90 - Cellulitis, unspecified Status: Acute (2) Asthma ICD Code: J45.909 - Unspecified asthma, uncomplicated Status: Acute (3) Anxiety ICD Code: F41.9 - Anxiety disorder, unspecified Status: Acute Assessment and Plan 62 year old female with a history of psoriasis, asthma, htn, bipolar presented to the ED with complaints of right knee pain. Cellulitis, right knee CRP 14.8 Knee x ray reviewed and shows prepatellar soft tissue swelling without fracture or dislocation -Pain management with IV morphine -IV antibiotics: Clindamycin -Consult orthopedics for recommendations -solumedrol x 1 given HTN, chronic -Resume home medications, monitor vitals Abdominal pain, acute - Possibly gastritis -History of ulcer - Dorsal IV 1 dose now. Morphine 2 mg 1 dose now. Loose stools - Patient started on IV clindamycin will possibly switched to Vanco IV, to avoid risk for CDiff DVT prophylaxis: SCDs Problem Qualifiers (1) Cellulitis: Qualified Codes: L03.115 - Cellulitis of right lower limb Randal Angulo Sep 20, 2017 09:57
[2017-09-20] MEDS ORDERED: MORPHINE SULFATE 2 MG/ML INJ IV PUSH ONE (10:00)
[2017-09-20] MEDS ORDERED: PANTOPRAZOLE SODIUM 40 MG VIAL IV PUSH ONE (10:00)
[2017-09-20] MEDS ORDERED: CLINDAMYCIN 900 MG/NS PREMIX 50 ML IV SCH (10:00)
[2017-09-20] MEDS ORDERED: GENTAMICIN SULFATE 80 MG/2 ML VIAL ONE (11:58)
[2017-09-20] MEDS ORDERED: LACTATED RINGER'S 1000 ML INJ 1,000 ML IV ONE (12:00)
[2017-09-20] MEDS ORDERED: PROPOFOL 200 MG/20 ML AMP IV ONE (12:00)
[2017-09-20] MEDS ORDERED: ONDANSETRON HCL 4 MG/2 ML VIAL IV ONE (12:00)
[2017-09-20] MEDS ORDERED: PHENYLEPH/NS 1000 MCG/10 ML SYR IV ONE (12:00)
[2017-09-20] MEDS ORDERED: DEXAMETHASONE SOD PHOS 4 MG/ML VIAL IV ONE (12:00)
[2017-09-20] MEDS ORDERED: GLYCOPYRROLATE 1 MG/5 ML SYRINGE IV PUSH ONE (12:00)
[2017-09-20] MEDS ORDERED: NEOSTIGMINE 5 MG/5 ML SYRINGE IV PUSH ONE (12:00)
[2017-09-20] MEDS ORDERED: LIDOCAINE HCL 1% PF 5 ML SYRINGE OTHER ONE (12:00)
[2017-09-20] MEDS ORDERED: ROCURONIUM INJ 50 MG/5 ML SYRINGE IV PUSH ONE (12:00)
[2017-09-20] MEDS ORDERED: CLINDAMYCIN PHOS 900 MG/6 ML VIAL ONE (12:29)
[2017-09-20] MEDS ORDERED: MISCELLANEOUS NURSING INFORMATION XX PRN (12:45)
[2017-09-20] MEDS ORDERED: MORPHINE SULFATE 4 MG/ML INJ IV PUSH PRN (12:45)
[2017-09-20] MEDS ORDERED: MAGNESIUM HYDROXIDE SUSP 30 ML CUP PO PRN (12:45)
[2017-09-20] MEDS ORDERED: diphenhydrAMINE HCL 25 MG CAP PO PRN (12:45)
[2017-09-20] MEDS ORDERED: Post-op Orders (for Pharmacy) XX ONE (12:45)
--- NOTE | 2017-09-20 12:48 | PD.OP ---
cc: Balaji Delgado MD Operative Report Date of Surgery: Sep 20, 2017 Preoperative Diagnosis: Right knee possible prepatellar septic bursitis with associated cellulitis Postoperative Diagnosis: Same Procedure: Right knee irrigation and debridement with prepatellar bursectomy Anesthesia: Gen. Surgeon: Balaji Delgado Mill Roll Operator(s): VU Shoemaker The surgical procedure was assisted by my Advanced Registered Nurse Practitioner. My MANAGER AIR presence was necessary throughout this case for the manipulation and positioning of the surgical extremity. My MANAGER AIR was assisting me throughout the duration of this procedure. The skill set of an Advance Registered Nurse Practitioner was medically necessary to complete this procedure. During the surgical case, the hvac refrigeration technician was working at the back table and the Advance Registered Nurse Practitioner was directly assisting me. Operation and Findings: Tourniquet time: 0 minutes at 250 mmHg of pressure Estimated blood loss: 20 cc We did not give preoperative antibiotics. There was a dose of clindamycin that was due which was given after cultures were obtained. After the appropriate anesthesia was administered, the patient's leg was prepped and draped in the usual sterile fashion. We made a small incision on the anterior aspect of the knee. The skin was thickened but intact. Note that there was moderate amount of erythema around the anterior aspect of the knee which extended laterally and then posteriorly. We expressed approximately 20 cc of serous fluid from the prepatellar bursa. There was significant thickening of the bursal tissue which was excised using a rongeur and also using mechanical debridement with a laparotomy sponge. We did not find gross purulence. We did take 2 cultures of the fluid before performing the debridement. We then irrigated the knee with 2 L of saline. We exchanged instruments and gloves. We placed a deep flat drain. This was sewn into place. We closed skin with 2-0 Monocryl followed by 2-0 nylon. The postoperative plan is for weightbearing as tolerated to the extremity. We have requested an infectious disease consultation to help determine type and length of antibiotics. We will follow drain output and likely remove the drain within the next couple of days. Balaji Delgado MD Sep 20, 2017 12:48
[2017-09-20] MEDS ORDERED: NORC5TAB PO (12:50)
[2017-09-20] MEDS ORDERED: SUGAMMADEX SODIUM 200 MG/2 ML VIAL IV PUSH ONE (12:59)
[2017-09-20] MEDS ORDERED: DO NOT ADM ANY ANTICOAGULANT DRUGS PRN (13:09)
[2017-09-20] MEDS ORDERED: MIDAZOLAM HCL 2 MG/2 ML VIAL ONE (13:15)
[2017-09-20] MEDS ORDERED: *morphine SULFATE 10 MG/ML PERIprocedure ONLY ONE (13:28)
[2017-09-20] MEDS: DEXT 5%-NACL 0.45% 1000 ML INJ 1,000 ML IV SCH ×2 (13:30→23:26)
[2017-09-20] MEDS ORDERED: ALUMINUM/MAGNESIUM/SIMETH 30 ML CUP PO PRN (14:15)
[2017-09-20] MEDS ORDERED: VANCOMYCIN INJ 1,250 MG in SODIUM CHLOR 0.9% 250 ML INJ 250 ML IV SCH (14:30)
[2017-09-20] MEDS ORDERED: Vancomycin Consult Pharmacy 1 EA OTHER SCH (14:30)
[2017-09-20] MEDS: LACTOBACILLUS ACIDOPHILUS TAB PO SCH (18:26)
[2017-09-20] MEDS: VANCOMYCIN INJ 1,500 MG in SODIUM CHLORID 0.9% 500 ML INJ 500 ML IV SCH (18:26)
[2017-09-20 19:15] VITALS: BP 123/56; PULSE 96; RESP 16; TEMP 98; O2SAT 98
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
[2017-09-20] MEDS: DOCUSATE SODIUM 50 MG/SENNA 8.6 MG TAB PO SCH (20:18)
[2017-09-20] MEDS: ACETAMINOPHEN/HYDROcodone 325 MG/5 MG TAB PO PRN (23:24)
[2017-09-21] VITALS (7 sets, daily range): BP systolic 117–166; BP diastolic 56–85; PULSE 83–98; RESP 14–20; TEMP 97.7–98.7; O2SAT 95–98
[2017-09-21] MEDS: VANCOMYCIN INJ 1,500 MG in SODIUM CHLORID 0.9% 500 ML INJ 500 ML IV SCH ×2 (04:27→19:32)
[2017-09-21 07:03] LABS: BASOPHIL % 0.2 % (0.0-2.0); EOSINOPHIL % 0.1 % (0.0-4.0); HEMATOCRIT 33.1 % (35.0-46.0); LYMPH % 13.3 % (9.0-44.0); LYMPHOCYTE # 1.2 TH/MM3 (1.0-4.8); MEAN CORPUSCULAR HEMOGLOBIN 28.5 PG (27.0-34.0); MEAN CORPUSCULAR HGB CONC 33.1 % (32.0-36.0); MEAN PLATELET VOLUME 8.5 FL (7.0-11.0); MONO % 8.8 % (0.0-8.0); MONOCYTE # 0.8 TH/MM3 (0-0.9); NEUT % 77.6 % (16.0-70.0); PLATELET COUNT 263 TH/MM3 (150-450); RED BLOOD COUNT 3.85 MIL/MM3 (4.00-5.30); RED CELL DISTRIBUTION WIDTH 13.2 % (11.6-17.2)
[2017-09-21 07:37] LABS: BICARBONATE 28.9 MEQ/L (21.0-32.0); CALCIUM 8.4 MG/DL (8.5-10.1); CREATININE 0.71 MG/DL (0.50-1.00)
[2017-09-21] MEDS: SODIUM CHLORIDE 0.9% FLUSH 10 ML FLUSH IV FLUSH SCH ×2 (09:00→21:00)
--- NOTE | 2017-09-21 09:34 | HHI.PR ---
Subjective Remarks Follow-up visit right knee cellulitis, dyspepsia. Patient seen and examined today and event. Reports she is doing better. Continues to have right knee pain, aching, non radiating, /. Denies diarrhea. Denies SOB/ dyspnea. Denies chest pain, palpitations, headaches, dizziness. Denies fevers, chills, n/ v. Denies dysuria. Objective Vitals Vital Signs Date Time Temp Pulse Resp B/P (MAP) Pulse Ox O2 Delivery O2 Flow Rate FiO2 09/21/17 07:54 97.7 84 18 117/56 (76) 95 09/21/17 04:29 97.8 95 16 135/62 (86) 98 09/21/17 00:01 97.8 97 14 136/63 (87) 96 09/20/17 19:15 98.0 96 16 123/56 (78) 98 09/20/17 18:32 20 09/20/17 14:30 76 16 114/55 (74) 95 Nasal Cannula 2 09/20/17 14:00 74 16 102/57 (72) 95 Nasal Cannula 2 09/20/17 13:45 68 16 102/59 (73) 95 Nasal Cannula 2 09/20/17 13:30 72 16 106/56 (73) 95 Nasal Cannula 2 09/20/17 13:15 70 16 110/57 (74) 95 Nasal Cannula 2 09/20/17 13:07 97.7 70 16 114/59 (77) 95 Nasal Cannula 2 I/O 09/20/17 09/20/17 09/20/17 09/21/17 09/21/17 09/21/17 07:00 15:00 23:00 07:00 15:00 23:00 Intake Total 1050 ml 1050 ml 720 ml Output Total 20 ml 600 ml 17 ml Balance 1050 ml 1030 ml -600 ml 703 ml Intake Oral 720 ml IV Total 1050 ml 50 ml Other 1000 ml Output Urine Total 600 ml Drainage Total 17 ml Estimated Blood Loss 20 ml # Voids 9 Result Diagram: 09/21/17 0540 09/21/17 0540 Imaging Last Impressions Knee X-Ray 09/20/17 0000 Signed Impressions: Service Date/Time: Wednesday, September 20, 2017 02:44 - CONCLUSION: 1. Prepatellar soft tissue swelling without acute fracture or dislocation. Frederick Avina MD Objective Remarks GENERAL: This is a well-nourished, well-developed patient, in no apparent distress. SKIN: Warm and dry. HEENT: Normocephalic. Pupils equal round and reactive. Nose without bleeding. Airway patent. NECK: Trachea midline. No JVD. Supple. CARDIOVASCULAR: Regular rate and rhythm without murmurs, gallops, or rubs. RESPIRATORY: Clear to auscultation. Breath sounds equal bilaterally. No wheezes , rales, or rhonchi. GASTROINTESTINAL: Abdomen soft, nondistended. Bowel Sounds normoactive x4. Tender to palpate mid epigastric region MUSCULOSKELETAL: Extremities without clubbing, cyanosis. Right knee edema, erythema, anna wrap, JPx1 small serous fluid NEUROLOGICAL: Awake and alert. Oriented to time, place, person. No focal neuro deficit. Moves all extremities. Normal speech. A/P Problem List: (1) Cellulitis ICD Code: L03.90 - Cellulitis, unspecified Status: Acute (2) Asthma ICD Code: J45.909 - Unspecified asthma, uncomplicated Status: Acute (3) Anxiety ICD Code: F41.9 - Anxiety disorder, unspecified Status: Acute Assessment and Plan 62 year old female with a history of psoriasis, asthma, htn, bipolar presented to the ED with complaints of right knee pain. S/P I&D Cellulitis, right knee CRP 14.8 - Knee x ray reviewed and shows prepatellar soft tissue swelling without fracture or dislocation - Pain management with [place]. Morphine IV for breakthrough pain - IV antibiotics Vancomycin. Cultures growing Staph Areus. Will check sensitivities. - Consult orthopedics I&D done. WBAT RLE - Consult infectious disease appreciated recommendation. Continue IV Abx for now. - Physical therapy treatment HTN, chronic - Resume home medications, monitor vitals Abdominal pain, acute History of ulcer? - Pantoprazole, Tums - Improved Loose stools - Patient started on IV clindamycin after switching to Vanco denies diarrhea - Collect stool for C. difficile if diarrhea is present DVT prophylaxis: Lovenox Discharge Planning Plan for discharge when cleared by ID. Problem Qualifiers (1) Cellulitis: Qualified Codes: L03.115 - Cellulitis of right lower limb Randal Angulo Sep 21, 2017 09:34
--- NOTE | 2017-09-21 09:39 | EKG ---
Date Performed: 09/20/2017 Time Performed: 10:41:33 PTAGE: 62 years EKG: Sinus rhythm MARKED LEFT AXIS DEVIATION MODERATE VOLTAGE CRITERIA FOR LVH, CONSIDER NORMAL VARIANT ABNORMAL ECG S lori the prior tracing, there has been no significant change PREVIOUS TRACING : 09/21/2016 21.46 DOCTOR: Ben Langley Interpretating Date/Time 09/21/2017 09:37:04
[2017-09-21] MEDS: DEXT 5%-NACL 0.45% 1000 ML INJ 1,000 ML IV SCH ×2 (09:42→18:41)
[2017-09-21] MEDS: ACETAMINOPHEN/HYDROcodone 325 MG/5 MG TAB PO PRN (09:44)
[2017-09-21] MEDS: LACTOBACILLUS ACIDOPHILUS TAB PO SCH ×3 (09:44→19:31)
[2017-09-21] MEDS: MULTIVITAMINS/MINERALS THERAPEUTIC TAB PO SCH (09:44)
[2017-09-21] MEDS: DOCUSATE SODIUM 50 MG/SENNA 8.6 MG TAB PO SCH ×2 (09:44→21:07)
[2017-09-21] MEDS: ENOXAPARIN SODIUM 40 MG/0.4 ML SYRINGE SQ SCH (11:43)
[2017-09-21] MEDS ORDERED: MORPHINE SULFATE 2 MG/ML INJ IV PUSH PRN (11:45)
--- NOTE | 2017-09-21 12:36 | PD.ORT.PN ---
Subjective Post Op Day #: 1 Subjective Remarks Patient is resting comfortably in bed in NAD. Patient states her right knee feels better today than before her surgery. Objective Vitals Vital Signs Date Time Temp Pulse Resp B/P (MAP) Pulse Ox O2 Delivery O2 Flow Rate FiO2 09/21/17 11:38 98.1 93 18 137/64 (88) 96 09/21/17 11:13 20 09/21/17 07:54 97.7 84 18 117/56 (76) 95 09/21/17 04:29 97.8 95 16 135/62 (86) 98 09/21/17 00:01 97.8 97 14 136/63 (87) 96 09/20/17 19:15 98.0 96 16 123/56 (78) 98 09/20/17 18:32 20 09/20/17 14:30 76 16 114/55 (74) 95 Nasal Cannula 2 09/20/17 14:00 74 16 102/57 (72) 95 Nasal Cannula 2 09/20/17 13:45 68 16 102/59 (73) 95 Nasal Cannula 2 09/20/17 13:30 72 16 106/56 (73) 95 Nasal Cannula 2 09/20/17 13:15 70 16 110/57 (74) 95 Nasal Cannula 2 09/20/17 13:07 97.7 70 16 114/59 (77) 95 Nasal Cannula 2 I/O 09/20/17 09/20/17 09/20/17 09/21/17 09/21/17 09/21/17 07:00 15:00 23:00 07:00 15:00 23:00 Intake Total 1050 ml 1050 ml 720 ml Output Total 20 ml 600 ml 17 ml Balance 1050 ml 1030 ml -600 ml 703 ml Intake Oral 720 ml IV Total 1050 ml 50 ml Other 1000 ml Output Urine Total 600 ml Drainage Total 17 ml Estimated Blood Loss 20 ml # Voids 9 Result Diagram: 09/21/17 0540 09/21/17 0540 Procedures Right knee irrigation and debridement with prepatellar bursectomy. Objective Remarks Dressing is C/D/I. EHL/TA/G intact. 2+ pedal pulse. Calf is soft and nontender. + SILT. Drain intact with moderate serosanguineous drainage. Minimal hyperemia to knee and lower leg. Assessment & Plan Ortho Post Op Day #: 1 Problem List: Assessment and Plan POD #1: Right knee irrigation and debridement with prepatellar bursectomy. 1. ID to see patient and manage ABX. Intra-operative cultures negative as of now, will follow until final results of culture are obtained. 2. WBAT RLE 3. Ice to the right knee PRN 4. Stable for discharge home once medically cleared by admitting physician and ID. 5. Maintain dressing and drain. Dressing change and drain removal POD #2. 6. F/U in the office with Dr. Delgado or VU Rich as previously scheduled. Doyle Moreno Sep 21, 2017 12:36
[2017-09-22] MEDS: DEXT 5%-NACL 0.45% 1000 ML INJ 1,000 ML IV SCH (03:20)
[2017-09-22 03:27] VITALS: BP 143/79; PULSE 93; RESP 20; TEMP 98.9; O2SAT 96
[2017-09-22] MEDS: ACETAMINOPHEN/HYDROcodone 325 MG/5 MG TAB PO PRN ×3 (04:15→23:28)
[2017-09-22] MEDS: VANCOMYCIN INJ 1,500 MG in SODIUM CHLORID 0.9% 500 ML INJ 500 ML IV SCH (04:16)
[2017-09-22] MEDS ORDERED: PHARMACY ORDERED LAB ONE (04:45)
[2017-09-22 07:11] VITALS: BP 160/74; PULSE 83; RESP 16; TEMP 98; O2SAT 94
[2017-09-22] MEDS: SODIUM CHLORIDE 0.9% FLUSH 10 ML FLUSH IV FLUSH SCH ×2 (09:19→23:29)
[2017-09-22] MEDS: LACTOBACILLUS ACIDOPHILUS TAB PO SCH ×3 (09:19→17:16)
[2017-09-22] MEDS: MULTIVITAMINS/MINERALS THERAPEUTIC TAB PO SCH (09:19)
--- NOTE | 2017-09-22 09:19 | HHI.PR ---
Subjective Remarks Follow-up visit right knee cellulitis, dyspepsia. Patient seen and examined today. Reports she is feeling better. Right knee pain feels like it is back to normal size. States she is able to put weight on it and has been ambulating without walker use or cane use, but uses side rails. Denies diarrhea. Denies SOB/ dyspnea. Denies chest pain, palpitations, headaches, dizziness. Denies fevers, chills, n/v. Denies dysuria. Objective Vitals Vital Signs Date Time Temp Pulse Resp B/P (MAP) Pulse Ox O2 Delivery O2 Flow Rate FiO2 09/22/17 07:11 98.0 83 16 160/74 (102) 94 09/22/17 03:27 98.9 93 20 143/79 (100) 96 09/21/17 23:56 98.6 83 16 144/67 (92) 95 09/21/17 20:40 98.7 98 20 166/77 (106) 97 09/21/17 20:13 20 09/21/17 15:46 98.6 90 18 129/85 (100) 95 09/21/17 11:38 98.1 93 18 137/64 (88) 96 09/21/17 11:13 20 I/O 09/21/17 09/21/17 09/21/17 09/22/17 09/22/17 09/22/17 07:00 15:00 23:00 07:00 15:00 23:00 Intake Total 720 ml 720 ml Output Total 17 ml Balance 703 ml 720 ml Intake Oral 720 ml 720 ml Drainage Total 17 ml # Voids 9 4 Result Diagram: 09/21/17 0540 09/21/17 0540 Imaging Last Impressions Knee X-Ray 09/20/17 0000 Signed Impressions: Service Date/Time: Wednesday, September 20, 2017 02:44 - CONCLUSION: 1. Prepatellar soft tissue swelling without acute fracture or dislocation. Frederick Avina MD Objective Remarks GENERAL: This is a well-nourished, well-developed patient, in no apparent distress. SKIN: Warm and dry. HEENT: Normocephalic. Pupils equal round and reactive. Nose without bleeding. Airway patent. NECK: Trachea midline. No JVD. Supple. CARDIOVASCULAR: Regular rate and rhythm without murmurs, gallops, or rubs. RESPIRATORY: Clear to auscultation. Breath sounds equal bilaterally. No wheezes , rales, or rhonchi. GASTROINTESTINAL: Abdomen soft, nondistended. Bowel Sounds normoactive x4. Tender to palpate mid epigastric region MUSCULOSKELETAL: Extremities without clubbing, cyanosis. Right knee trace edema , no erythema, anna wrap, JPx1 small serous fluid NEUROLOGICAL: Awake and alert. Oriented to time, place, person. No focal neuro deficit. Moves all extremities. Normal speech. A/P Problem List: (1) Cellulitis ICD Code: L03.90 - Cellulitis, unspecified Status: Acute (2) Asthma ICD Code: J45.909 - Unspecified asthma, uncomplicated Status: Acute (3) Anxiety ICD Code: F41.9 - Anxiety disorder, unspecified Status: Acute Assessment and Plan 62 year old female with a history of psoriasis, asthma, htn, bipolar presented to the ED with complaints of right knee pain. S/P I&D Cellulitis, right knee CRP 14.8 - Knee x ray reviewed and shows prepatellar soft tissue swelling without fracture or dislocation - Pain management with [facility]. Morphine IV for breakthrough pain - IV antibiotics Vancomycin. Cultures growing Staph Areus. Sensitivities - sensitive to vancomycin. - Consult orthopedics I&D done. WBAT RLE - Consult infectious disease appreciated recommendation. Continue IV Abx for now. - Physical therapy treatment. May possible need cane for home use. Will discuss with PT. HTN, uncontrolled - may be pain related. Start lisinopril 5mg BID - Monitor BP Trend Abdominal pain, acute History of ulcer? - Pantoprazole, Tums - Improved Loose stools - Patient started on IV clindamycin after switching to Vanco denies diarrhea - Collect stool for C. difficile if diarrhea is present - No loose stools reported DVT prophylaxis: Lovenox Discharge Planning Plan for discharge when cleared by ID. Problem Qualifiers (1) Cellulitis: Qualified Codes: L03.115 - Cellulitis of right lower limb Randal Angulo Sep 22, 2017 09:19
[2017-09-22] MEDS: ENOXAPARIN SODIUM 40 MG/0.4 ML SYRINGE SQ SCH (09:20)
[2017-09-22] MEDS: DOCUSATE SODIUM 50 MG/SENNA 8.6 MG TAB PO SCH ×2 (09:20→21:00)
[2017-09-22 11:26] VITALS: BP 177/87; PULSE 85; RESP 16; TEMP 97.7; O2SAT 99
--- NOTE | 2017-09-22 13:48 | PD.ORT.PN ---
Subjective Post Op Day #: 2 Subjective Remarks Patient is resting comfortably in bed in NAD. Patient continues to report overall improvement in her knee pain since surgery. Objective Vitals Vital Signs Date Time Temp Pulse Resp B/P (MAP) Pulse Ox O2 Delivery O2 Flow Rate FiO2 09/22/17 11:26 97.7 85 16 177/87 (117) 99 09/22/17 07:11 98.0 83 16 160/74 (102) 94 09/22/17 03:27 98.9 93 20 143/79 (100) 96 09/21/17 23:56 98.6 83 16 144/67 (92) 95 09/21/17 20:40 98.7 98 20 166/77 (106) 97 09/21/17 20:13 20 09/21/17 15:46 98.6 90 18 129/85 (100) 95 I/O 09/21/17 09/21/17 09/21/17 09/22/17 09/22/17 09/22/17 07:00 15:00 23:00 07:00 15:00 23:00 Intake Total 720 ml 720 ml Output Total 17 ml Balance 703 ml 720 ml Intake Oral 720 ml 720 ml Drainage Total 17 ml # Voids 9 4 Result Diagram: 09/21/17 0540 09/21/17 0540 Procedures Right knee irrigation and debridement with prepatellar bursectomy. Objective Remarks Dressing changed with no drainage. Sutures are intact. Drain pulled secondary to minimal drainage. No redness or s/s of infection to the knee. EHL/TA/G intact. 2+ pedal pulse. Calf is soft and nontender. + SILT. Minimal hyperemia to lower leg. CX + MSSA Assessment & Plan Ortho Post Op Day #: 2 Problem List: Assessment and Plan POD #2: Right knee irrigation and debridement with prepatellar bursectomy. 1. ID to see patient and manage ABX. Intra-operative cultures + MSSA. ID to arrange for PICC line and discharge ABX. 2. WBAT RLE 3. Ice to the right knee PRN 4. Stable for discharge home once medically cleared by admitting physician and ID. 5. Drain pulled. Daily dressing changes. 6. F/U in the office with Dr. Delgado or [facility] as previously scheduled. Doyle Moreno Sep 22, 2017 13:48
--- NOTE | 2017-09-22 13:51 | HHI.IDPN ---
Subjective Subjective Remarks co R knee pain no fever Antibiotics vancomycin Allergies: Coded Allergies: No Known Allergies (Unverified Allergy, Unknown, 09/20/17) Objective . Vital Signs Date Time Temp Pulse Resp B/P (MAP) Pulse Ox O2 Delivery O2 Flow Rate FiO2 09/22/17 11:26 97.7 85 16 177/87 (117) 99 09/22/17 07:11 98.0 83 16 160/74 (102) 94 09/22/17 03:27 98.9 93 20 143/79 (100) 96 09/21/17 23:56 98.6 83 16 144/67 (92) 95 09/21/17 20:40 98.7 98 20 166/77 (106) 97 09/21/17 20:13 20 09/21/17 15:46 98.6 90 18 129/85 (100) 95 . Laboratory Tests Test 09/21/17 05:40 White Blood Count 9.0 TH/MM3 Red Blood Count 3.85 MIL/MM3 Hemoglobin 11.0 GM/DL Hematocrit 33.1 % Mean Corpuscular Volume 86.0 FL Mean Corpuscular Hemoglobin 28.5 PG Mean Corpuscular Hemoglobin Concent 33.1 % Red Cell Distribution Width 13.2 % Platelet Count 263 TH/MM3 Mean Platelet Volume 8.5 FL Neutrophils (%) (Auto) 77.6 % Lymphocytes (%) (Auto) 13.3 % Monocytes (%) (Auto) 8.8 % Eosinophils (%) (Auto) 0.1 % Basophils (%) (Auto) 0.2 % Neutrophils # (Auto) 7.0 TH/MM3 Lymphocytes # (Auto) 1.2 TH/MM3 Monocytes # (Auto) 0.8 TH/MM3 Eosinophils # (Auto) 0.0 TH/MM3 Basophils # (Auto) 0.0 TH/MM3 CBC Comment DIFF FINAL Differential Comment Laboratory Tests Test 09/21/17 05:40 Blood Urea Nitrogen 14 MG/DL Creatinine 0.71 MG/DL Random Glucose 136 MG/DL Calcium Level 8.4 MG/DL Sodium Level 142 MEQ/L Potassium Level 3.9 MEQ/L Chloride Level 106 MEQ/L Carbon Dioxide Level 28.9 MEQ/L Anion Gap 7 MEQ/L Estimat Glomerular Filtration Rate 83 ML/MIN Microbiology Date/Time Source Procedure Growth Status 09/20/17 04:10 Blood Peripheral Aerobic Blood Culture - Preliminary NO GROWTH IN 2 DAYS Resulted 09/20/17 04:10 Blood Peripheral Anaerobic Blood Culture - Preliminary NO GROWTH IN 2 DAYS Resulted 09/20/17 04:05 Blood Peripheral Aerobic Blood Culture - Preliminary NO GROWTH IN 2 DAYS Resulted 09/20/17 04:05 Blood Peripheral Anaerobic Blood Culture - Preliminary NO GROWTH IN 2 DAYS Resulted 09/20/17 13:00 Wound Knee Fungal Smear - Final NO FUNGAL ELEMENTS SEEN. Resulted 09/20/17 13:00 Wound Knee Fungal Culture Pending Resulted 09/20/17 13:00 Wound Knee Acid Fast Stain - Final NO ACID FAST BACILLI SEEN Resulted 09/20/17 13:00 Wound Knee Mycobacterial Culture Pending Resulted 09/20/17 13:00 Wound Knee Gram Stain - Final Complete 09/20/17 13:00 Wound Culture - Final Staphylococcus Aureus Complete 09/20/17 13:00 Wound Knee Fungal Smear - Final NO FUNGAL ELEMENTS SEEN. Resulted 09/20/17 13:00 Wound Knee Fungal Culture Pending Resulted 09/20/17 13:00 Wound Knee Acid Fast Stain - Final NO ACID FAST BACILLI SEEN Resulted 09/20/17 13:00 Wound Knee Mycobacterial Culture Pending Resulted 09/20/17 13:00 Wound Knee Gram Stain - Final Complete 09/20/17 13:00 Wound Culture - Final Staphylococcus Aureus Complete Imaging Last Impressions Knee X-Ray 09/20/17 0000 Signed Impressions: Service Date/Time: Wednesday, September 20, 2017 02:44 - CONCLUSION: 1. Prepatellar soft tissue swelling without acute fracture or dislocation. Frederick Avina MD Physical Exam CONSTITUTIONAL/GENERAL: This is an obese elderly patient, in no apparent distress. TUBES/LINES/DRAINS: SKIN: No jaundice, rashes, or lesions. Skin temperature appropriate. Not diaphoretic. CARDIOVASCULAR: Regular rate and rhythm without murmurs, gallops, or rubs. No JVD. Peripheral pulses symmetric. RESPIRATORY/CHEST: Symmetric, unlabored respirations. Clear to auscultation. Breath sounds equal bilaterally. No wheezes, rales, or rhonchi. GASTROINTESTINAL: Abdomen soft, non-tender, nondistended. MUSCULOSKELETAL: Extremities without clubbing, cyanosis, RLL wtih minimal edema and no erythema Surgical dressing in place over with R knee with drain in place, serosang drainage NEUROLOGICAL: Awake and alert. Motor and sensory grossly within normal limits. Follows commands. Clear speech. Moves all extremities. Assessment & Plan Remarks Right knee possible prepatellar septic bursitis with associated cellulitis following traumatic injury, MSSA sp debridement, bursectomy Abx associated diarrhea, C.diff negative dc vancomycin start cefazolin 4 weeks of tx OPAT PICC follow op clx Discussed Condition With Johanne Nino MD Sep 22, 2017 13:51
--- NOTE | 2017-09-22 13:54 | HHI.FF ---
Infusion Therapy Location of Infusion Therapy: [facility] IV Infusion Order Patient Information Patient Weight 85 kg Diagnosis: Coded Allergies: No Known Allergies (Unverified Allergy, Unknown, 09/20/17) Administer Medication Cefazolin 2 grams IV q 8 hours Start Treatment: Sep 22, 2017 Stop Treatment: Oct 19, 2017 Additional Information Venous access: PICC Line Additional Instructions [x] Peripheral flush and dressing changes per protocol [x] Implanted port and central linen attendant: * Implanted port: 10 ml Normal Saline followed by 5 ml Heparin 100 units/ml Heparin flush after each use and monthly to maintain. [] May leave port accessed during therapy. [] May leave peripheral site accessed for duration of therapy. [x] If patient has SOB or respiratory distress, check oxygen saturation. If less than 90% or clinical signs of respiratory distress, administer oxygen at 2 L/min. via nasal cannula and notify physician. [x] Anaphylaxis/Reaction orders: * Stop infusion. * Keep IV line open with saline flush. * Notify physician. * Monitor vital signs every 15 minutes until symptoms resolve. * Check Oxygen saturation; Oxygen at 2 L/min. via nasal cannula if less than 90% or clinical signs of respiratory distress. * Administer diphenhydramine (Benadryl) 25 mg IV STAT, (unless patient has received as pre-med). May repeat once, if necessary. * Solu-Cortef 250 mg IVP over 30-60 seconds, use 100 mg vials for each dissolution. * Epinephrine (1mg/1 ml) 0.3 mg subcutaneously or IVP now with any signs of respiratory distress. * Check with physician for new additional pre-med orders if patient is re- challenged or re-treated. [x] May remove PICC line when treatment complete, after confirming with Physician. [x] If the patient is admitted to the hospital, the ED, or transferred via [facility] , complete transfer form including medication reconciliation order sheet. Laboratory Tests Weekly Labs: CBC w/diff, Creatinine, CRP, SED Rate Johanne Mckeon MD Sep 22, 2017 13:54
[2017-09-22 16:25] VITALS: BP 183/95; PULSE 85; RESP 18; TEMP 98.3; O2SAT 97
--- NOTE | 2017-09-22 16:36 | RADRPT ---
EXAM DATE/TIME: 09/22/2017 16:20 [facility] COMPARISON: CHEST SINGLE AP, September 21, 2016, 22:03. INDICATIONS : Evaluate for picc line placement. MEDICAL HISTORY : Asthma. SURGICAL HISTORY : None. ENCOUNTER: Initial ACUITY: 1 day PAIN SCORE: 0/10 LOCATION: chest FINDINGS: Right arm PICC line is in good position with tip overlying SVC. Lungs are focally clear. No effusion present. Cardiac contours are satisfactory for technique and projection. CONCLUSION: PICC line is in good position Aris Walton MD on September 22, 2017 at 16:34 Board Certified Radiologist. This report was verified electronically.
[2017-09-22] MEDS: ceFAZolin 2 GM PREMIX 50 ML IV SCH ×2 (16:45→23:29)
[2017-09-22] MEDS ORDERED: hydrALAZINE HCL 25 MG TAB PO ONE (17:00)
[2017-09-22] MEDS ORDERED: ENALAPRILAT 1.25 MG/ML VIAL IV PUSH PRN (17:00)
--- NOTE | 2017-09-22 17:08 | HHI.FF ---
Infusion Therapy Location of Infusion Therapy: [facility] Infusion Therapy Order Patient Information Patient Weight 85 kg Diagnosis: Coded Allergies: No Known Allergies (Unverified Allergy, Unknown, 09/20/17) Administer Medication Ceftriaxone 2 grams IV q 24 hours Start Treatment: Sep 22, 2017 Stop Treatment: Oct 19, 2017 Additional Information Venous access: Other (midline) Additional Instructions [x] Peripheral flush and dressing changes per protocol [x] Implanted port and central sort line worker: * Implanted port: 10 ml Normal Saline followed by 5 ml Heparin 100 units/ml Heparin flush after each use and monthly to maintain. [] May leave port accessed during therapy. [] May leave peripheral site accessed for duration of therapy. [x] If patient has SOB or respiratory distress, check oxygen saturation. If less than 90% or clinical signs of respiratory distress, administer oxygen at 2 L/min. via nasal cannula and notify physician. [x] Anaphylaxis/Reaction orders: * Stop infusion. * Keep IV line open with saline flush. * Notify physician. * Monitor vital signs every 15 minutes until symptoms resolve. * Check Oxygen saturation; Oxygen at 2 L/min. via nasal cannula if less than 90% or clinical signs of respiratory distress. * Administer diphenhydramine (Benadryl) 25 mg IV STAT, (unless patient has received as pre-med). May repeat once, if necessary. * Solu-Cortef 250 mg IVP over 30-60 seconds, use 100 mg vials for each dissolution. * Epinephrine (1mg/1 ml) 0.3 mg subcutaneously or IVP now with any signs of respiratory distress. * Check with physician for new additional pre-med orders if patient is re- challenged or re-treated. [x] May remove PICC line when treatment complete, after confirming with Physician. [x] If the patient is admitted to the hospital, the ED, or transferred via [facility] , complete transfer form including medication reconciliation order sheet. Laboratory Tests Weekly Labs: CBC w/diff, Creatinine, LFT's (Hepatic function test) Johanne Mckeon MD Sep 22, 2017 17:08
[2017-09-22] MEDS ORDERED: SOLU250I IV PUSH (17:12)
[2017-09-22] MEDS ORDERED: EPIN1INJ21 SQ (17:12)
[2017-09-22] MEDS ORDERED: CEFT2INJ IM (17:12)
[2017-09-22] MEDS ORDERED: EPIN1INJ21 IV PUSH (17:12)
[2017-09-22] MEDS: PANTOPRAZOLE SOD 40 MG DELAYED RELEASE TAB PO SCH (17:16)
[2017-09-22 20:04] VITALS: BP 163/77; PULSE 95; RESP 19; TEMP 98; O2SAT 98
[2017-09-22] MEDS ORDERED: LISINOPRIL 5 MG TAB PO SCH (21:00)
[2017-09-22] MEDS: LISINOPRIL 10 MG TAB PO SCH (23:27)
[2017-09-23 01:17] VITALS: BP 157/75; PULSE 84; RESP 18; TEMP 98; O2SAT 96
[2017-09-23 04:37] VITALS: BP 159/77; PULSE 88; RESP 18; TEMP 98.2; O2SAT 96
[2017-09-23] MEDS: ceFAZolin 2 GM PREMIX 50 ML IV SCH ×3 (05:45→21:38)
[2017-09-23 08:34] VITALS: BP 141/75; PULSE 83; RESP 18; TEMP 98.1; O2SAT 94
[2017-09-23] MEDS: SODIUM CHLORIDE 0.9% FLUSH 10 ML FLUSH IV FLUSH SCH ×2 (09:00→20:35)
[2017-09-23] MEDS: LACTOBACILLUS ACIDOPHILUS TAB PO SCH ×3 (09:00→17:45)
[2017-09-23] MEDS: DOCUSATE SODIUM 50 MG/SENNA 8.6 MG TAB PO SCH ×2 (09:00→20:38)
[2017-09-23] MEDS: LISINOPRIL 10 MG TAB PO SCH ×2 (09:00→20:37)
[2017-09-23] MEDS: MULTIVITAMINS/MINERALS THERAPEUTIC TAB PO SCH (09:01)
[2017-09-23] MEDS: PANTOPRAZOLE SOD 40 MG DELAYED RELEASE TAB PO SCH (09:01)
[2017-09-23] MEDS: ENOXAPARIN SODIUM 40 MG/0.4 ML SYRINGE SQ SCH (09:02)
--- NOTE | 2017-09-23 09:12 | HHI.PR ---
Subjective Remarks Follow-up visit right knee cellulitis, dyspepsia. Patient seen and examined today. Reports she is okay. Right knee minimal pain. Denies diarrhea. Denies SOB/ dyspnea. Denies chest pain, palpitations, headaches, dizziness. Denies fevers, chills, n/v. Denies dysuria. Objective Vitals Vital Signs Date Time Temp Pulse Resp B/P (MAP) Pulse Ox O2 Delivery O2 Flow Rate FiO2 09/23/17 08:34 98.1 83 18 141/75 (97) 94 09/23/17 04:37 98.2 88 18 159/77 (104) 96 09/23/17 01:17 98.0 84 18 157/75 (102) 96 09/22/17 20:04 98.0 95 19 163/77 (105) 98 09/22/17 16:25 98.3 85 18 183/95 (124) 97 09/22/17 11:26 97.7 85 16 177/87 (117) 99 I/O 09/22/17 09/22/17 09/22/17 09/23/17 09/23/17 09/23/17 07:00 15:00 23:00 07:00 15:00 23:00 Intake Total 720 ml Output Total 15 ml 500 ml Balance 720 ml -15 ml -500 ml Intake Oral 720 ml Output Urine Total 500 ml Drainage Total 15 ml # Voids 4 1 # Bowel Movements 1 1 Result Diagram: 09/21/17 0540 09/21/17 0540 Imaging Last Impressions Chest X-Ray 09/22/17 0000 Signed Impressions: Service Date/Time: Friday, September 22, 2017 16:20 - CONCLUSION: PICC line is in good position Aris Walton MD Knee X-Ray 09/20/17 0000 Signed Impressions: Service Date/Time: Wednesday, September 20, 2017 02:44 - CONCLUSION: 1. Prepatellar soft tissue swelling without acute fracture or dislocation. Frederick Avina MD Objective Remarks GENERAL: This is a well-nourished, well-developed patient, in no apparent distress. SKIN: Warm and dry. HEENT: Normocephalic. Pupils equal round and reactive. Nose without bleeding. Airway patent. NECK: Trachea midline. CARDIOVASCULAR: Regular rate and rhythm without murmurs, gallops, or rubs. RESPIRATORY: Clear to auscultation. Breath sounds equal bilaterally. No wheezes , rales, or rhonchi. GASTROINTESTINAL: Abdomen soft, nondistended. Bowel Sounds normoactive x4. Tender to palpate mid epigastric region MUSCULOSKELETAL: Extremities without clubbing, cyanosis. Right knee trace edema , no erythema. ROM wnl NEUROLOGICAL: Awake and alert. Oriented to time, place, person. No focal neuro deficit. Moves all extremities. Normal speech. Procedures S/P I&D Right Knee A/P Problem List: (1) Cellulitis ICD Code: L03.90 - Cellulitis, unspecified Status: Acute (2) Asthma ICD Code: J45.909 - Unspecified asthma, uncomplicated Status: Acute (3) Anxiety ICD Code: F41.9 - Anxiety disorder, unspecified Status: Acute Assessment and Plan 62 year old female with a history of psoriasis, asthma, htn, bipolar presented to the ED with complaints of right knee pain. S/P I&D Cellulitis, right knee CRP 14.8 - Knee x ray reviewed and shows prepatellar soft tissue swelling without fracture or dislocation - Pain management with [facility]. Morphine IV for breakthrough pain - Previously on Vanco. Placed on Ancef MSSA cultures. - Consult orthopedics I&D done. WBAT RLE - Consult infectious disease appreciated recommendation. Outpatient IV infusion, Rocephin every 24 hours, 4 weeks with end date 10/19/17. PICC line in place. - Physical therapy treatment. - CM consulted patient is self-pay and would need arrangements to get to the infusion clinic and have IV antibiotics infusion Until 10/19/17 HTN, uncontrolled - may be pain related. - Lisinopril 10mg BID - Monitor BP Trend - Improving Abdominal pain, acute History of ulcer? - Pantoprazole, Tums - Improved Loose stools - Patient started on IV clindamycin after switching to Vanco denies diarrhea - Collect stool for C. difficile if diarrhea is present - No loose stools reported DVT prophylaxis: Lovenox Discharge Planning Plan for discharge when IV ABX infusion is arranged Problem Qualifiers (1) Cellulitis: Qualified Codes: L03.115 - Cellulitis of right lower limb Randal Angulo Sep 23, 2017 09:12
[2017-09-23 10:58] VITALS: BP 155/72; PULSE 95; RESP 18; TEMP 98.2; O2SAT 94
[2017-09-23] MEDS ORDERED: PANT40TA3 PO (11:42)
[2017-09-23] MEDS ORDERED: LISI10TA3 PO (11:42)
[2017-09-23] MEDS ORDERED: LACT PO (11:42)
[2017-09-23] MEDS ORDERED: HYDR-3516 PO (11:42)
[2017-09-23 15:33] VITALS: BP 154/74; PULSE 99; RESP 18; TEMP 98.4; O2SAT 92
[2017-09-23 19:15] VITALS: BP 147/74; PULSE 107; RESP 17; TEMP 98.4; O2SAT 94
--- NOTE | 2017-09-23 19:43 | PD.ORT.PN ---
Subjective Subjective Remarks no new issues. afebrile Objective Vitals Vital Signs Date Time Temp Pulse Resp B/P (MAP) Pulse Ox O2 Delivery O2 Flow Rate FiO2 09/23/17 19:15 98.4 107 17 147/74 (98) 94 09/23/17 15:33 98.4 99 18 154/74 (100) 92 09/23/17 10:58 98.2 95 18 155/72 (99) 94 09/23/17 08:34 98.1 83 18 141/75 (97) 94 09/23/17 04:37 98.2 88 18 159/77 (104) 96 09/23/17 01:17 98.0 84 18 157/75 (102) 96 09/22/17 20:04 98.0 95 19 163/77 (105) 98 I/O 09/22/17 09/22/17 09/22/17 09/23/17 09/23/17 09/23/17 07:00 15:00 23:00 07:00 15:00 23:00 Intake Total 720 ml Output Total 15 ml 500 ml Balance 720 ml -15 ml -500 ml Intake Oral 720 ml Output Urine Total 500 ml Drainage Total 15 ml # Voids 4 1 # Bowel Movements 1 1 Result Diagram: 09/21/17 0540 09/21/17 0540 Procedures Right knee irrigation and debridement with prepatellar bursectomy. Objective Remarks Dressing CDI. Sutures are intact. No redness or s/s of infection to the knee. EHL/TA/G intact. 2+ pedal pulse. Calf is soft and nontender. + SILT. Minimal hyperemia to lower leg. CX + MSSA Assessment & Plan Assessment and Plan POD #3: Right knee irrigation and debridement with prepatellar bursectomy. no new issues 1. ID to see patient and manage ABX. Intra-operative cultures + MSSA. ID to arrange for PICC line and discharge ABX. 2. WBAT RLE 3. Ice to the right knee PRN 4. Stable for discharge home once medically cleared by admitting physician and ID. 5. Daily dressing changes. 6. F/U in the office with Dr. Delgado or [facility] as previously scheduled. Nikita Mccurdy Jr., MD Sep 23, 2017 19:43
[2017-09-23] MEDS: ACETAMINOPHEN/HYDROcodone 325 MG/5 MG TAB PO PRN (20:37)
[2017-09-24] VITALS: BP 152/76; PULSE 90; RESP 18; TEMP 98.2; O2SAT 96
[2017-09-24 04:00] VITALS: BP 125/75; PULSE 88; RESP 18; TEMP 98; O2SAT 93
[2017-09-24] MEDS ORDERED: PHARMACY ORDERED LAB ONE (04:45)
[2017-09-24] MEDS: ceFAZolin 2 GM PREMIX 50 ML IV SCH ×2 (06:05→13:46)
[2017-09-24 08:00] VITALS: BP 133/79; PULSE 90; RESP 20; TEMP 98.3; O2SAT 96
[2017-09-24] MEDS: PANTOPRAZOLE SOD 40 MG DELAYED RELEASE TAB PO SCH (08:45)
[2017-09-24] MEDS: LISINOPRIL 10 MG TAB PO SCH (08:45)
[2017-09-24] MEDS: MULTIVITAMINS/MINERALS THERAPEUTIC TAB PO SCH (08:45)
[2017-09-24] MEDS: LACTOBACILLUS ACIDOPHILUS TAB PO SCH ×3 (08:45→17:45)
[2017-09-24] MEDS: ENOXAPARIN SODIUM 40 MG/0.4 ML SYRINGE SQ SCH (08:46)
[2017-09-24] MEDS: SODIUM CHLORIDE 0.9% FLUSH 10 ML FLUSH IV FLUSH SCH (08:46)
[2017-09-24] MEDS: DOCUSATE SODIUM 50 MG/SENNA 8.6 MG TAB PO SCH (09:00)
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
--- NOTE | 2017-09-24 09:49 | HHI.PR ---
Subjective Remarks In bed appears in nad. Says she has no pain at this time She is able to ambulate. no fever or chills NO n/v/d/c. Denies chest pain or sob Objective Vitals Vital Signs Date Time Temp Pulse Resp B/P (MAP) Pulse Ox O2 Delivery O2 Flow Rate FiO2 09/24/17 09:16 Room Air 09/24/17 04:00 98.0 88 18 125/75 (92) 93 09/24/17 04:00 Room Air 09/24/17 00:00 Room Air 09/24/17 00:00 98.2 90 18 152/76 (101) 96 09/23/17 23:00 Room Air 09/23/17 19:15 98.4 107 17 147/74 (98) 94 09/23/17 15:33 98.4 99 18 154/74 (100) 92 09/23/17 10:58 98.2 95 18 155/72 (99) 94 I/O 09/23/17 09/23/17 09/23/17 09/24/17 09/24/17 09/24/17 07:00 15:00 23:00 07:00 15:00 23:00 # Voids 1 # Bowel Movements 1 Result Diagram: 09/21/17 0540 09/21/17 0540 Imaging Last Impressions Chest X-Ray 09/22/17 0000 Signed Impressions: Service Date/Time: Friday, September 22, 2017 16:20 - CONCLUSION: PICC line is in good position Aris Walton MD Knee X-Ray 09/20/17 0000 Signed Impressions: Service Date/Time: Wednesday, September 20, 2017 02:44 - CONCLUSION: 1. Prepatellar soft tissue swelling without acute fracture or dislocation. Frederick Avina MD Objective Remarks GENERAL: This is a well-nourished, well-developed patient, in no apparent distress. SKIN: Warm and dry. HEENT: Normocephalic. Pupils equal round and reactive. Nose without bleeding. Airway patent. NECK: Trachea midline. CARDIOVASCULAR: Regular rate and rhythm without murmurs, gallops, or rubs. RESPIRATORY: Clear to auscultation. Breath sounds equal bilaterally. No wheezes , rales, or rhonchi. GASTROINTESTINAL: Abdomen soft, nondistended. Bowel Sounds normoactive x4. Tender to palpate mid epigastric region MUSCULOSKELETAL: Extremities without clubbing, cyanosis. Right knee trace edema , no erythema. ROM wnl NEUROLOGICAL: Awake and alert. Oriented to time, place, person. No focal neuro deficit. Moves all extremities. Normal speech. Procedures S/P I&D Right Knee A/P Problem List: (1) Cellulitis ICD Code: L03.90 - Cellulitis, unspecified Status: Acute (2) Asthma ICD Code: J45.909 - Unspecified asthma, uncomplicated Status: Acute (3) Anxiety ICD Code: F41.9 - Anxiety disorder, unspecified Status: Acute Assessment and Plan 62 year old female with a history of psoriasis, asthma, htn, bipolar presented to the ED with complaints of right knee pain. S/P I&D Cellulitis, right knee CRP 14.8 - Knee x ray reviewed and shows prepatellar soft tissue swelling without fracture or dislocation - Pain management with [facility]. Morphine IV for breakthrough pain - Previously on Vanco. Placed on Ancef MSSA cultures. - Consult orthopedics I&D done. WBAT RLE - Consult infectious disease appreciated recommendation. Outpatient IV infusion, Rocephin every 24 hours, 4 weeks with end date 10/19/17. PICC line in place. - Physical therapy treatment. - CM consulted patient is self-pay and would need arrangements to get to the infusion clinic and have IV antibiotics infusion Until 10/19/17 HTN, uncontrolled - may be pain related. - Lisinopril 10mg BID - Monitor BP Trend - Improving Abdominal pain, acute History of ulcer? - Pantoprazole, Tums - Improved Loose stools - Patient started on IV clindamycin after switching to Vanco denies diarrhea - Collect stool for C. difficile if diarrhea is present - No loose stools reported DVT prophylaxis: Lovenox Discharge Planning Plan for discharge when IV ABX infusion is arranged. Outpatient IV infusion, Rocephin every 24 hours, 4 weeks with end date 10/19/17. PICC line in place. Problem Qualifiers (1) Cellulitis: Qualified Codes: L03.115 - Cellulitis of right lower limb Keshia Coats MD Sep 24, 2017 09:49
[2017-09-24 12:00] VITALS: BP 138/65; PULSE 102; RESP 19; TEMP 98.3; O2SAT 97
[2017-09-24 16:00] VITALS: BP 129/74; PULSE 128; RESP 18; TEMP 98.2; O2SAT 97
== END 2017-09-24 18:10 | disposition home or self-care (01) | DRG 488 ==
LOC: NEPC 01:48 → UNDOADMIN 03:59 → NEDA 03:59 → INTOOBSV 04:02 → NEPGCP 05:15 → N07B 12:39 → NEPGCP 13:56 → OBSVTOIN 09-21 08:25 → N04B 09-23 22:47
PROVIDERS: ADMIT Hospitalist; ATTEND Hospitalist
PROC: 0S9C00Z Drainage of Right Knee Joint with Drainage Device, Open Approach (ICD-10-PCS; 2017-09-20)
PROC: 0S9C3ZZ Drainage of Right Knee Joint, Percutaneous Approach (ICD-10-PCS; 2017-09-20)
PROC: 0MBN0ZZ Excision of Right Knee Bursa and Ligament, Open Approach (ICD-10-PCS; principal; 2017-09-20 11:41)
PROC: 02HV33Z Insertion of Infusion Device into Superior Vena Cava, Percutaneous Approach (ICD-10-PCS; 2017-09-22)
DX: M71.161 Other infective bursitis, right knee (principal); L03.115 Cellulitis of right lower limb; M00.9 Pyogenic arthritis, unspecified; K52.1 Toxic gastroenteritis and colitis; K25.9 Gastric ulcer, unspecified as acute or chronic, without hemorrhage or perforation; I10 Essential (primary) hypertension; K21.9 Gastro-esophageal reflux disease without esophagitis; L40.9 Psoriasis, unspecified; R79.82 Elevated C-reactive protein (CRP); R00.0 Tachycardia, unspecified; J45.909 Unspecified asthma, uncomplicated; B95.61 Methicillin susceptible Staphylococcus aureus infection as the cause of diseases classified elsewhere; F31.9 Bipolar disorder, unspecified; F41.1 Generalized anxiety disorder; T36.8X5A Adverse effect of other systemic antibiotics, initial encounter; W01.0XXA Fall on same level from slipping, tripping and stumbling without subsequent striking against object, initial encounter; Y92.239 Unspecified place in hospital as the place of occurrence of the external cause; Z85.828 Personal history of other malignant neoplasm of skin; Z86.14 Personal history of Methicillin resistant Staphylococcus aureus infection
CPT/HCPCS: 20610; 36415; 36569; 71045; 73564; 76937; 80048; 80202; 83605; 84550; 85025; 85610; 85652; 85730; 86140; 86403; 87015; 87040; 87070; 87102; 87116; 87147; 87186; 87205; 87206; 87493; 93005; 94150; 96361; 96365; 96367; 96368; 96375; C9113; G0378; G8987-GP; G8988-GP; J0690; J1100; J1580; J1650; J1885; J2250; J2270; J2370; J2405; J2710; J2930; J3010; J3370; J7030; J7040; J7120